=== PATIENT | male | born 1950 | race Caucasian/White ===

== ENCOUNTER 2019-03-12 22:10 | Inpatient (IN) ==
[2019-03-12] MEDS ORDERED: dilTIAZem HCl 5 MG/ML 5 ML VIAL IV STA ×2 (22:27→23:32)
[2019-03-12] MEDS ORDERED: SODIUM CHLORIDE 0.9% 1000ML 1,000 ML IV ONE (22:28)
--- NOTE | 2019-03-12 22:38 | XRay Report ---
XR chest 1V portable CLINICAL HISTORY: Chest Pain COMPARISON STUDY: No previous studies for comparison. FINDINGS: There is no pneumothorax. A trace right pleural effusion is present. Note is made of mild c ardiomegaly. There is pulmonary vascular congestion with suspected mild pulmonary edema. There are mi ld bibasilar opacities. IMPRESSION: 1. Interstitial thickening suggestive of mild pulmonary edema. Mild bibasilar opacities. Radiographic follow up is recommended. 2. Trace right pleural effusion. 3. Mild cardiomegaly. ACT 112: Negative or not required by law. Electronically signed by: Rubén Villalta M.D. 03/12/2019 10:36 PM
[2019-03-12 22:43] LABS: Basophils # (auto) 0.03 K/uL (0-0.2); Basophils % (auto) 0.2 %; Eosinophils # (auto) 0.39 K/uL (0-0.5); Eosinophils % (auto) 3.2 %; Hematocrit (blood only) 47.7 % (42-52); Hemoglobin 15.7 g/dL (14.0-18.0); Immature Granulocytes # (auto) 0.12 K/uL (0.00-0.02); Lymphocytes # (auto) 4.03 K/uL (1.2-3.4); Lymphocytes % (auto) 32.7 %; Mean Corpuscular Hemoglobin 28.5 pg (25-34); Mean Corpuscular Hgb Conc 32.9 g/dL (32-36); Mean Corpuscular Volume 86.7 fL (80-100); Mean Platelet Volume 11.2 fL (7.4-10.4); Monocytes # (auto) 1.06 K/uL (0.11-0.59); Monocytes % (auto) 8.6 %; Neutrophils # (auto) 6.68 K/uL (1.4-6.5); Neutrophils % (auto) 54.3 %; Platelet Count 304 K/uL (130-400); RDW Coefficient of Variation 13.3 % (11.5-14.5); RDW Standard Deviation 42.2 fL (36.4-46.3); White Blood Count 12.31 K/uL (4.8-10.8)
[2019-03-12] MEDS: dilTIAZem HCL 125 MG in DEXTROSE 5% 100 ML IV SCH (22:43)
[2019-03-12 23:04] LABS: Alanine Aminotransferase 87 U/L (12-78); Albumin Level 3.8 gm/dl (3.4-5.0); Aspartate Aminotransferase 39 U/L (15-37); BUN Creatinine Ratio 21.6 (10-20); Blood Urea Nitrogen 21 mg/dl (7-18); Calcium 9.1 mg/dl (8.5-10.1); Carbon Dioxide 26 mmol/L (21-32); Chloride 109 mmol/L (98-107); Creatinine Clr Calc Pharmacy 92.3 ml/min; Est GFR (Non-African American) 78.5; Glucose 122 mg/dl (70-99); Lipase 153 U/L (73-393); Potassium 3.9 mmol/L (3.5-5.1); Sodium 140 mmol/L (136-145)
[2019-03-12 23:09] LABS: Alkaline Phosphatase 110 U/L (45-117); Bilirubin,Total 0.8 mg/dl (0.2-1); Globulin 3.9 gm/dl (2.5-4.0); Total Protein 7.7 gm/dl (6.4-8.2); Troponin I < 0.015 ng/ml (0-0.045)
[2019-03-12] MEDS: LORazepam 0.5 MG/1 ML VIAL IV PRN (23:09)
[2019-03-12] MEDS ORDERED: LEVOFLOXACIN/D5W 750 MG/150 ML BAG IV SCH (23:45)
--- NOTE | 2019-03-13 00:09 | Emergency Department Note ---
Entered by Ewa Bird acting as a scribe for Gilbert Barroso DO History of Present Illness General Chief complaint: Shortness of Breath/Dyspnea Stated complaint: SOB,WHEEZING Source: patient and family (son) History of Present Illness Onset (ago): week(s) 1 Location: chest (SOB/dyspnea) Pain Consistency: + constant and + other (worsened today) Relieved By: + other (sleeping upright) Exacerbated By: + rest (laying flat) Associated symptoms: + denies other symptoms (diarrhea, swelling), + cough (began productive, now dry ), + shortness of breath (x1 week, wheezing 1 hour ago ) and + other (rhinorrhea, heart palpitations 1 hour ago); no chest pain and no nausea/vomiting The patient is a 69 year old male with a family history of Afib (brothers) who presents to the Emergency Room with complaints of shortness of breath/dyspnea. The patient states that he has been experiencing SOB for 1 week associated with cold symptoms including a cough (began productive, now dry) and rhinorrhea. He explains that he has been sleeping upright on a recliner for the past few nights due to trouble breathing. He was recently placed on doxycycline for his symptoms. The patient states that his SOB worsened a few hours ago and that he began having heart palpitations and wheezing about 1 hour ago. He also reports taking Advil cold and sinus at this time. He denies chest pain, nausea, vom iting, diarrhea, and swelling. The patient offers no further concerns at this time. Home Medications Home Medications Medication Instructions Recorded Confirmed Type amlodipine 5 mg PO DAILY 03/12/19 03/12/19 History Allergies Allergy/AdvReac Type Severity Reaction Status Date / Time No Known Allergies Allergy Unverified 03/12/19 23:03 Past Med/Surg History Medical History No pertinent past medical history Surgical History No pertinent past surgical history Family History Brother Afib Social History Feels Safe at Home: Yes Smoking Status: Never smoker Review of Systems See HPI for pertinent positives & negatives. and A total of 10 systems reviewed and were otherwise negative Physical Exam Vital Signs Vital Signs - 24 hr 03/12/19 22:10 03/12/19 22:12 03/12/19 22:22 Temperature 36.7 C Temperature Source Oral Pulse Rate 163 H 180 H Pulse Rate [Apical] Pulse Rate from SpO2 Sensor Pulse Rhythm Irregular Respiratory Rate 18 20 Respiratory Effort / Characteristics Non-Labored Spontaneous Non-Labored Respiratory Depth Normal Normal Respiratory Pattern Regular Blood Pressure 152/111 H Blood Pressure [Left Arm] Blood Pressure Mean 124 Blood Pressure Mean [Left Arm] Pulse Oximetry 98 91 98 Oxygen Delivery Method Room Air Room Air Room Air Oxygen Flow Rate Sepsis Recent Fever Within 48 Hours No Sepsis Action Taken by Nursing No Action Required 03/12/19 22:26 03/12/19 22:30 03/12/19 22:35 Temperature Temperature Source Pulse Rate 166 H 176 H 163 H Pulse Rate [Apical] Pulse Rate from SpO2 Sensor Pulse Rhythm Respiratory Rate 25 H 32 H 29 H Respiratory Effort / Characteristics Respiratory Depth Respiratory Pattern Blood Pressure 169/118 H Blood Pressure [Left Arm] Blood Pressure Mean 128 Blood Pressure Mean [Left Arm] Pulse Oximetry Oxygen Delivery Method Oxygen Flow Rate Sepsis Recent Fever Within 48 Hours Sepsis Action Taken by Nursing 03/12/19 22:45 03/12/19 22:56 03/12/19 23:00 Temperature Temperature Source Pulse Rate 166 H 164 H 163 H Pulse Rate [Apical] Pulse Rate from SpO2 Sensor Pulse Rhythm Respiratory Rate 41 H 34 H 27 H Respiratory Effort / Characteristics Respiratory Depth Respiratory Pattern Blood Pressure 184/109 H Blood Pressure [Left Arm] Blood Pressure Mean 127 Blood Pressure Mean [Left Arm] Pulse Oximetry Oxygen Delivery Method Oxygen Flow Rate Sepsis Recent Fever Within 48 Hours Sepsis Action Taken by Nursing 03/12/19 23:10 03/12/19 23:15 03/12/19 23:16 Temperature Temperature Source Pulse Rate 158 H 146 H 152 H Pulse Rate [Apical] Pulse Rate from SpO2 Sensor 151 H 142 H Pulse Rhythm Respiratory Rate 33 H 31 H 30 H Respiratory Effort / Characteristics Respiratory Depth Respiratory Pattern Blood Pressure 157/125 H 152/106 H Blood Pressure [Left Arm] Blood Pressure Mean 134 116 Blood Pressure Mean [Left Arm] Pulse Oximetry 88 L 89 L Oxygen Delivery Method Room Air Room Air Oxygen Flow Rate Sepsis Recent Fever Within 48 Hours Sepsis Action Taken by Nursing 03/12/19 23:30 03/12/19 23:31 03/12/19 23:40 Temperature Temperature Source Pulse Rate 134 H 147 H 139 H Pulse Rate [Apical] Pulse Rate from SpO2 Sensor 125 H 161 H 140 H Pulse Rhythm Respiratory Rate 24 29 H 21 Respiratory Effort / Characteristics Respiratory Depth Respiratory Pattern Blood Pressure 133/95 146/86 H Blood Pressure [Left Arm] Blood Pressure Mean 112 103 Blood Pressure Mean [Left Arm] Pulse Oximetry 89 L 89 L 89 L Oxygen Delivery Method Nasal Cannula Nasal Cannula Oxygen Flow Rate 3 3 Sepsis Recent Fever Within 48 Hours Sepsis Action Taken by Nursing 03/13/19 00:01 Temperature Temperature Source Pulse Rate Pulse Rate [Apical] 118 H Pulse Rate from SpO2 Sensor Pulse Rhythm Respiratory Rate 26 H Respiratory Effort / Characteristics Respiratory Depth Normal Respiratory Pattern Blood Pressure Blood Pressure [Left Arm] 132/86 Blood Pressure Mean Blood Pressure Mean [Left Arm] 101 Pulse Oximetry 94 Oxygen Delivery Method Nasal Cannula Oxygen Flow Rate 3 Sepsis Recent Fever Within 48 Hours Sepsis Action Taken by Nursing GENERAL: alert, sitting up in bed, wearing hospital gown, disheveled, well nou rished, no distress, non-toxic EYE EXAM: normal conjunctiva OROPHARYNX: no exudate, no erythema, lips, buccal mucosa, and tongue normal and mucous membranes are moist NECK: supple, no nuchal rigidity, no adenopathy, non-tender LUNGS: Diminished bilateral bases normal chest wall mechanics HEART: S1 normal and S2 normal, tachycardic and irregularly irregular. ABDOMEN: abdomen soft, non-tender, normo-active bowel sounds, no masses, no rebound or guarding. BACK: Back is symmetrical on inspection and there is no deformity, no midline tenderness, no CVA tenderness. SKIN: no rashes and no bruising UPPER EXTREMITIES: upper extremities are grossly normal. LOWER EXTREMITIES: No pitting edema. NEURO EXAM: Normal sensorium, cranial nerves II-XII grossly intact, normal speech, no gross weakness of arms, no gross weakness of legs. Course Course ED COURSE: Vital signs were reviewed and showed hypertension. The patients medical record was reviewed The above diagnostic studies were performed and reviewed. ED treatments and interventions as stated above. 2225: The patient was evaluated in room B04B. A complete history and physical examination was performed. 2335: I checked on the patient and am giving him another bolus. []: Upon reevaluation, the patient is resting.I discussed my findings with the patient and he understands and agrees with the treatment plan. Based on the patients age, coexisting illnesses, exam and lab findings the decision to treat as an inpatient was made. The patient remained stable while under my care. The patient will be evaluated for further management by Dr. Fry. Administered Medications Diltiazem HCl 125 mg/ Dextrose 125 mls @ 0 mls/hr IV .Q0M NIRMALA; Protocol Stop: 04/11/19 22:29 Last Titration: 03/12/19 23:00 Dose: 15 mg/hr, 15 mls/hr Documented by: [id number] Cosigned by: [id number] Admin: 03/12/19 22:43 Dose: 5 mg/hr, 5 mls/hr Documented by: [id number] Cosigned by: [id number] Lorazepam (Ativan) 0.5 mg in 1 mls @ 0.5 mls/min IV UD PRN PRN Reason: Anxiety/Agitation Stop: 04/11/19 23:01 Last Admin: 03/12/19 23:09 Dose: 0.5 mls/min Documented by: [id number] Levofloxacin/Dextrose (Levaquin/D5w) 750 mg in 150 mls @ 100 mls/hr IV Q24H NIRMALA Stop: 03/26/19 23:44 Last Admin: 03/12/19 23:43 Dose: 100 mls/hr Documented by: [id number] Discontinued Medications Diltiazem HCl (Cardizem) 10 mg IV NOW STA Stop: 03/12/19 22:28 Last Admin: 03/12/19 22:34 Dose: 10 mg Documented by: [id number] Cosigned by: [id number] Diltiazem HCl (Cardizem) 10 mg IV NOW STA Stop: 03/12/19 23:33 Last Admin: 03/12/19 23:36 Dose: 10 mg Documented by: [id number] Cosigned by: [id number] Sodium Chloride (Nss 1000ml) 1,000 mls @ 999 mls/hr IV .Q1H1M ONE Stop: 03/12/19 23:28 Last Infusion: 03/12/19 23:27 Dose: 0 mls/hr Documented by: [id number] Admin: 03/12/19 22:34 Dose: 999 mls/hr Documented by: [id number] Critical Care Time Critical Care Time: Yes Total Critical Care Time: 40 I have personally spent 40 minutes of critical care time in the direct management of this patient. This includes bedside care, interpretation of diagnostic studies, and testing, discussion with consultants, patient, and family members, and other required patient management activities. This 40 minutes is in excess of all separately billable procedures. Medical Decision Making Differential Diagnosis Differential diagnoses includes but is not limited to pneumonia, bronchitis, COPD/Asthma exacerbation, pneumothorax, pulmonary embolism, congestive heart failure, acute coronary syndrome Medical Records Attestation: I reviewed the patient's medical records. Home Medications Current Medication List: was personally reviewed by me Laboratory Data Attestation: I reviewed the patient's lab results. Result diagrams: 03/12/19 22:25 03/12/19 22:25 Lab Results 03/12/19 03/12/19 03/12/19 Range/Units 22:25 22:25 Unknown WBC 12.31 H (4.8-10.8) K/uL RBC 5.50 (4.7-6.1) M/uL Hgb 15.7 (14.0-18.0) g/dL Hct 47.7 (42-52) % MCV 86.7 (80-100) fL MCH 28.5 (25-34) pg MCHC 32.9 (32-36) g/dL RDW Std Deviation 42.2 (36.4-46.3) fL RDW Coeff of Raegan 13.3 (11.5-14.5) % Plt Count 304 (130-400) K/uL MPV 11.2 H (7.4-10.4) fL Immature Gran % (Auto) 1.0 % Neut % (Auto) 54.3 % Lymph % (Auto) 32.7 % [place] % (Auto) 8.6 % Eos % (Auto) 3.2 % Baso % (Auto) 0.2 % Immature Gran # (Auto) 0.12 H (0.00-0.02) K/uL Neut # (Auto) 6.68 H (1.4-6.5) K/uL Lymph # (Auto) 4.03 H (1.2-3.4) K/uL [place] # (Auto) 1.06 H (0.11-0.59) K/uL Eos # (Auto) 0.39 (0-0.5) K/uL Baso # (Auto) 0.03 (0-0.2) K/uL Sodium 140 (136-145) mmol/L Potassium 3.9 (3.5-5.1) mmol/L Chloride 109 H (98-107) mmol/L Carbon Dioxide 26 (21-32) mmol/L Anion Gap 5.0 (3-11) BUN 21 H (7-18) mg/dl Creatinine 0.99 (0.6-1.4) mg/dl Est Cr Clr Drug Dosing 92.3 ml/min Est GFR ( Amer) 91.0 Est GFR (Non-Af Amer) 78.5 BUN/Creatinine Ratio 21.6 H (10-20) Glucose 122 H (70-99) mg/dl Calcium 9.1 (8.5-10.1) mg/dl Total Bilirubin 0.8 (0.2-1) mg/dl AST 39 H (15-37) U/L ALT 87 H (12-78) U/L Alkaline Phosphatase 110 (45-117) U/L Troponin I < 0.015 (0-0.045) ng/ml Total Protein 7.7 (6.4-8.2) gm/dl Albumin 3.8 (3.4-5.0) gm/dl Globulin 3.9 (2.5-4.0) gm/dl Albumin/Globulin Ratio 1.0 (0.9-2) Lipase 153 (73-393) U/L Influenza Type A Ag Neg for Influ A (Neg) Influenza Type B Ag Neg for Influ B (Neg) Imaging Data Radiologist's Impression: Radiology results as stated below per my review and the radiologist's interpretation: XR chest 1V portable CLINICAL HISTORY: Chest Pain COMPARISON STUDY: No previous studies for comparison. FINDINGS: There is no pneumothorax. A trace right pleural effusion is present. Note is made of mild cardiomegaly. There is pulmonary vascular congestion with suspected mild pulmonary edema. There are mild bibasilar opacities. IMPRESSION: 1. Interstitial thickening suggestive of mild pulmonary edema. Mild bibasilar opacities. Radiographic follow up is recommended. 2. Trace right pleural effusion. 3. Mild cardiomegaly. ACT 112: Negative or not required by law. Electronically signed by: Rubén Villalta M.D. 03/12/2019 10:36 PM ECG Data Attestation: I personally reviewed and interpreted this ECG as follows: Indication: + SOB/dyspnea Rate (beats per minute): 167 Rhythm: + atrial fibrillation (with RVR) ECG Berger: + Normal ECG Findings: + Other (Nonspecific ST wave changes in lateral ); no PVCs Blood Pressure Blood Pressure Findings: Elevated blood pressure Blood Pressure Disposition: further management by hospitalist VICTORIA Narrative Patient is a 69-year-old male who presents the ER for shortness of breath associate with upper respiratory symptoms. He notes his been sick for about a week and has been unable to lie flat due to shortness of breath. He is appear visiting his son. Upon presentation he is found to be in A. fib with RVR and a heart rate in the 180s. Lungs are diminished bilateral bases. IV was established blood work was obtained and showed mild leukocytosis of 12,000. No significant anemia. BMP with a slightly elevated glucose. Mild transaminitis as well. Troponin was negative. Lipase unremarkable. Influenza was negative. Patient was placed on a Cardizem drip and given 2 separate Cardizem boluses. Chest x-ray suggestive of pulmonary edema. Patient has been on doxycycline for treatment of pneumonia. Heart rate trended down to the 1 teens. Patient maintained his blood pressure. Patient was covered with a dose of Levaquin and updated and admitted to the hospital for A. fib with RVR with some congestive changes on chest x-ray. Impression & Plan Atrial fibrillation with RVR, SOB (shortness of breath), Pleural effusion, URI (upper respiratory infection) Discharge Plan Visit Data Chief Complaint: Shortness of Breath/Dyspnea Stated Complaint: SOB,WHEEZING ED Provider: Gilbert Barroso Discharge Problem: Atrial fibrillation with RVR, SOB (shortness of breath), Pleural effusion, URI (upper respiratory infection) Patient Disposition: Being Evaluated by Hospitalist Forms Stand Alone Forms: My [facility] Prescriptions Prescriptions: No Action amlodipine 5 mg tablet 5 mg PO DAILY RF: 0 Referrals Referrals: PCP,NO [Primary Care Provider] - Discharge Problem: URI (upper respiratory infection) Qualifiers: URI type: unspecified URI Qualified Code(s): J06.9 - Acute upper respiratory infection, unspecified The scribe's documentation has been prepared under my direction and personally reviewed by me in its entirety. I confirm that the note above accurately reflects all work, treatment, procedures, and medical decision making performed by me.
[2019-03-13] MEDS ORDERED: NITROGLYCERIN SL 0.4 MG/TAB TAB SL PRN (00:58)
[2019-03-13] MEDS ORDERED: ONDANSETRON INJ 2 MG/ML 2 ML VIAL IV PRN (00:58)
[2019-03-13] MEDS ORDERED: BENZONATATE 100 MG CAPSULE PO ONE (00:58)
[2019-03-13] MEDS ORDERED: FUROSEMIDE 40 MG/4 ML VIAL IV STA (00:58)
[2019-03-13] MEDS ORDERED: FUROSEMIDE 20 MG in SYRINGE 0 ML IV ONE ×2 (01:00→15:30)
[2019-03-13] MEDS ORDERED: LEVOFLOXACIN CONSULT ACTIVE PRN (01:02)
[2019-03-13 01:19] LABS: INR 1.1 (0.9-1.1); Prothrombin Time 10.9 Seconds (9.0-12.0)
--- NOTE | 2019-03-13 01:41 | History and Physical Report ---
DATE OF ADMISSION: 03/12/2019 CHIEF COMPLAINT: Shortness of breath, cough and palpitations. HISTORY OF PRESENT ILLNESS: This is a 69-year-old male with past medical history significant for hypertension. He is visiting [place]. He is having cold-like symptoms and cough going on for last 9 days. He was taking doxycycline with the PCP, but apparently not helping much. Last three days he did not sleep because of his cough and today he was getting short of breath and his heart was racing, so he came to the ER and found to be in rapid AFib with heart rate in 180's. He was started on Cardizem drip and was also given Ativan and Levaquin. Currently resting comfortably. Denies any chest pain, no headache, no dizziness, no earache. Has some runny nose, no sore throat. Appetite is okay. No dysphagia, no odynophagia. No nausea, no vomiting, no abdominal pain. Normal bowel and bladder movements. The patient does not know whether he has any blood in stools or black stools. No hematuria. He does not know whether he has any swelling in the legs. No rash. The patient denies any easy bruising or easy bleeding. Otherwise, he is active, he can climb steps and walk without any issues. ALLERGIES: No known drug allergies. PAST MEDICAL HISTORY: As mentioned above. Also significant for glaucoma. PAST SURGICAL HISTORY: He has stents in both eyes for his glaucoma and also cataract surgeries. MEDICATIONS: He is on amlodipine 5 mg p.o. daily. FAMILY HISTORY: Significant for father had hypertension and kidney disease. Mother had CHF, AFib and she is 90, she is alive and two of his brother has atrial fibrillation. SOCIAL HISTORY: He smoked for short period of time when he was 18. Denies any alcohol use. REVIEW OF SYMPTOMS: As per HPI. Rest of review of symptoms negative. PHYSICAL EXAMINATION: GENERAL: The patient is of moderate built, currently not in acute distress. VITAL SIGNS: Temperature 36.7, pulse when he came in it was 180's currently in 130s, respiratory rate 20s, blood pressure 132/86, oxygen 94% on 3 liters. HEENT: No pallor, no icterus. Pupils equal, round, reactive to light. NECK: No JVD, no neck masses, no carotid bruits. CARDIOVASCULAR: S1, S2 heard. Tachycardia, irregular rhythm. RESPIRATORY SYSTEM: Normal AP diameter. No accessory muscle use. No wheezing, no crackles. ABDOMEN: Soft, bowel sounds present, nontender. No distention. CENTRAL NERVOUS SYSTEM: Cranial nerves II-XII grossly intact. Nonfocal. EXTREMITIES: +1 pedal edema present, no erythema seen. LABORATORIES DATA: WBC 12.3, hemoglobin 15.7, hematocrit 47.7, platelets 304. Sodium 140, potassium 3.9, chloride 109, bicarbonate 26, BUN 21, creatinine 0.9, serum glucose 102, calcium 9.1, total bilirubin 0.8, AST 39, ALT 87, alkaline phosphatase is 110. Troponin I less than 0.015. Lipase 153. Influenza A and B negative. IMAGING DATA: Chest x-ray shows interstitial thickening suggestive of mild pulmonary edema, mild bibasilar opacities, trace right pleural effusion, mild cardiomegaly, possible right lower lobe infiltrate. EKG: AFib with rapid ventricular response at rate of 167, nonspecific ST abnormalities seen. ASSESSMENT AND PLAN: This is a 69-year-old male who presents with ongoing cough and presents with shortness of breath and palpitations accompanied with rapid atrial fibrillation. 1. Rapid atrial fibrillation: brothers and mother has atrial fibrillation. The patient was started on Cardizem drip in the ER which we will continue. Placed on IV heparin. Serial cardiac enzymes, echocardiogram. Monitor in tele floor. Consult cardiology in a.m. for further recommendations. 2. Pulmonary congestion, mild lower extremity edema, possible congestive heart failure: We will give a dose of IV Lasix 20 mg. Will follow echocardiogram. I's and O's and follow the response. Await Cardiology input. 3. Possible bronchitis versus pneumonia, could be possible right lower lobe infiltrate on chest x-ray, was getting doxycycline, was not helping. He is having cough and yellowish phlegm now is clear. In the ER he was started on Levaquin which we will continue. We will follow the response. 4. Hypertension. Will hold amlodipine as patient started on Cardizem drip. Will monitor. 5. Deep venous thrombosis prophylaxis, on IV heparin. DISPOSITION: Closely monitor in tele floor. Level 1 full code. MTDD
[2019-03-13] MEDS ORDERED: HEPARIN 25000 UNIT/500 ML D5W IV ONE (01:53)
[2019-03-13] MEDS: HEPARIN SODIUM/DEXTROSE 25,000 UNITS/500 ML BAG IV SCH ×2 (02:00→13:53)
[2019-03-13] MEDS: Heparin IV Standard *NO* Bolus IV SCH ×2 (02:00→07:06)
[2019-03-13] MEDS ORDERED: GUAIFENESIN/CODEINE 100MG/10MG 5ML UDC PO PRN (04:30)
[2019-03-13 05:22] LABS: Basophils # (auto) 0.02 K/uL (0-0.2); Basophils % (auto) 0.1 %; Eosinophils # (auto) 0.13 K/uL (0-0.5); Eosinophils % (auto) 0.9 %; Hematocrit (blood only) 44.2 % (42-52); Hemoglobin 14.7 g/dL (14.0-18.0); Immature Granulocytes # (auto) 0.13 K/uL (0.00-0.02); Immature Granulocytes % (auto) 0.9 %; Lymphocytes # (auto) 2.23 K/uL (1.2-3.4); Lymphocytes % (auto) 15.9 %; Mean Corpuscular Hemoglobin 28.7 pg (25-34); Mean Corpuscular Hgb Conc 33.3 g/dL (32-36); Mean Corpuscular Volume 86.3 fL (80-100); Monocytes # (auto) 0.88 K/uL (0.11-0.59); Monocytes % (auto) 6.3 %; Neutrophils # (auto) 10.63 K/uL (1.4-6.5); Neutrophils % (auto) 75.9 %; Platelet Count 274 K/uL (130-400); RDW Coefficient of Variation 13.1 % (11.5-14.5); RDW Standard Deviation 41.8 fL (36.4-46.3); Red Blood Count 5.12 M/uL (4.7-6.1); White Blood Count 14.02 K/uL (4.8-10.8)
[2019-03-13 05:40] LABS: BUN Creatinine Ratio 22.6 (10-20); Calcium 8.7 mg/dl (8.5-10.1); Creatinine Clr Calc Pharmacy 108.2 ml/min; Est GFR (Non-African American) 90.6; Magnesium 1.9 mg/dl (1.8-2.4); Potassium 3.9 mmol/L (3.5-5.1)
[2019-03-13] MEDS: BENZONATATE 100 MG CAPSULE PO SCH ×3 (07:55→21:45)
[2019-03-13] MEDS: dilTIAZem HCL 125 MG in DEXTROSE 5% 100 ML IV SCH ×3 (07:55→08:28)
[2019-03-13] MEDS ORDERED: METOPROLOL TARTRATE 25 MG TAB PO STA (08:41)
--- NOTE | 2019-03-13 08:46 | Cardiology Consultation ---
Date of Consultation March 13, 2019 Assessment & Plan (1) Atrial fibrillation with RVR: (2) Acute systolic (congestive) heart failure: (3) Pericardial effusion without cardiac tamponade: (4) HTN (hypertension): (5) URI (upper respiratory infection): I had a long discussion with the patient and his regarding the natural history, pathophysiology, and stroke risk associated with paroxysmal atrial fibrillation. [id number] score is 2 secondary to age and history of hypertension. Continue IV heparin. Transition to apixaban at discharge. Add metoprolol 25 mg every 6 hours. Wean IV Cardizem infusion as tolerated. Discussed potential need for transesophageal guided direct current cardioversion during hospitalization. We will continue medical management for the time being and reconsider in the next 24 to 40 hours pending clinical course. Chest x-ray demonstrates mild congestion and possible right lower lobe infiltrate on admission. Patient improved with 1 dose of IV Lasix. Repeat chest x-ray. Await results of resting 2D transthoracic echocardiogram. Antibiotics per internal medicine. Recommend maintaining serum potassium greater than 4.0, and serum magnesium level greater than 2.0. Supplementation ordered. TSH with reflex T4 ordered for completeness. Addendum: Chest x-ray reveals pulmonary edema. Resting 2D transthoracic echocardiogram demonstrates mild to moderate LV systolic dysfunction with global hypokinesis, moderate to severe mitral regurgitation, and indirect evidence of mild pulmonary hypertension. 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 There is a small circumferential pericardial effusion without evidence of tamponade. Recommend IV diuretic therapy and addition of colchicine. Wean IV Cardizem as tolerated. Continue beta-fco. Consideration for transesophageal guided direct current cardioversion pending clinical course. History of Present Illness Reason for Consultation: Paroxysmal atrial fibrillation Requesting Physician: Dr. Orellana Attending Physician: Delma Orellana MD History of Present Illness 69-year-old patient admitted to the hospital with palpitations, and shortness of breath. Patient describes shortness of breath cough, rhinorrhea, congestion, over the past week. He became abruptly short of breath yesterday prompting ER evaluation. Reports associated palpitations. Found to be atrial fibrillation with rapid ventricular response in ER. Reports family history of atrial f ibrillation involving 2 brothers and his mother. Denies personal history of coronary disease, diabetes, congestive heart failure, cerebrovascular accident, or rheumatic fever as a child. Patient treated with intravenous Cardizem infusion overnight. Outpatient amlodipine placed on hold. Heart rate remains elevated. Blood pressure controlled. present at bedside. She offers no additional concerns/complaints this time. Allergies Allergy/AdvReac Type Severity Reaction Status Date / Time No Known Allergies Allergy Unverified 03/12/19 23:03 Home Medications Home Medications Medication Instructions Recorded Confirmed Type amlodipine 5 mg PO DAILY 03/12/19 03/12/19 History Patient History Medical History No pertinent past medical history Surgical History No pertinent past surgical history Family History Brother Afib Social History Preferred Language: Mozambican Sole Layer Required: No Beliefs That Will Affect Care: None Current Living Situation: Spouse Feels Safe at Home: Yes Safety Concerns: Feels Safe At This Time Smoking Status: Never smoker Hx Alcohol Use: No Hx Substance Use: No Review of Systems Review of Systems: All systems reviewed & are unremarkable except as noted in HPI & below Physical Exam Constitutional: well developed, well nourished and + obese; no acute distress Respiratory: Auscultation: + crackles (Scant crackles at the right base); no rhonchi and no wheezes Cardiovascular: Rate/Rhythm: + tachycardic and + irregularly irregular Heart Sounds: normal S1 and normal S2; no murmur Vessels: no JVD Extremities: no edema Results & Data Vital Signs (Past 12 Hours) Vital Signs Temp Pulse Pulse Resp BP BP Pulse Ox 03/13/19 08:38 03/13/19 07:19 36.5 C 102 H 20 124/77 93 03/13/19 05:29 36.4 C L 79 22 126/74 94 03/13/19 00:30 36.6 C 113 H 17 141/86 H 92 03/13/19 00:19 118 H 24 116/87 92 03/13/19 00:01 118 H 26 H 132/86 94 03/12/19 23:40 139 H 21 146/86 H 89 L 03/12/19 23:31 147 H 29 H 89 L 03/12/19 23:30 134 H 24 133/95 89 L 03/12/19 23:16 152 H 30 H 89 L 03/12/19 23:15 146 H 31 H 152/106 H 88 L 03/12/19 23:10 158 H 33 H 157/125 H 03/12/19 23:00 163 H 27 H 03/12/19 22:56 164 H 34 H 184/109 H 03/12/19 22:45 166 H 41 H 03/12/19 22:35 163 H 29 H 169/118 H 03/12/19 22:30 176 H 32 H 03/12/19 22:26 166 H 25 H 03/12/19 22:22 180 H 20 98 03/12/19 22:12 36.7 C 163 H 18 152/111 H 91 03/12/19 22:10 98 Pulse Ox 03/13/19 08:38 93 03/13/19 07:19 03/13/19 05:29 03/13/19 00:30 03/13/19 00:19 03/13/19 00:01 03/12/19 23:40 03/12/19 23:31 03/12/19 23:30 03/12/19 23:16 03/12/19 23:15 03/12/19 23:10 03/12/19 23:00 03/12/19 22:56 03/12/19 22:45 03/12/19 22:35 03/12/19 22:30 03/12/19 22:26 03/12/19 22:22 03/12/19 22:12 03/12/19 22:10 (1) URI (upper respiratory infection) URI type: unspecified URI Qualified Code(s): J06.9 - Acute upper respiratory infection, unspecified (2) HTN (hypertension) Hypertension type: essential hypertension Qualified Code(s): I10 - Essential (primary) hypertension
[2019-03-13] MEDS ORDERED: POTASSIUM CHLORIDE 20 MEQ TABCR PO STA ×2 (08:47→16:57)
[2019-03-13 08:48] LABS: Partial Thromboplastin Ratio 1.4; Partial Thromboplastin Time 37.3 Seconds (21.0-31.0)
[2019-03-13] MEDS ORDERED: MAGNESIUM SULFATE / D5W 1 GM/100 ML BAG IV ONE (09:00)
[2019-03-13] MEDS ORDERED: AMLODIPINE BESYLATE 5 MG TAB PO SCH (09:00)
[2019-03-13] MEDS ORDERED: HEPARIN IV BOLUS 7,000 UNITS in SYRINGE 0 ML IV ONE (09:15)
--- NOTE | 2019-03-13 09:34 | XRay Report ---
XR chest 1V portable CLINICAL HISTORY: SOB COMPARISON STUDY: 03/12/2019 FINDINGS: The heart remains enlarged. There is radiographic evidence of mild congestive failure/fluid overload. There are small bilateral pleural effusions. There are right basilar airspace opacities, f ocal edema versus atelectasis versus infectious/inflammatory process IMPRESSION: 1. Cardiomegaly and radiographic evidence of congestive failure/fluid overload 2. Small bilateral pleural effusions 3. Persistent right basilar airspace opacities ACT 112: Negative or not required by law. Electronically signed by: Stephan Caal M.D. 03/13/2019 9:33 AM
[2019-03-13] MEDS: ACETAMINOPHEN 325 MG TAB PO PRN (09:48)
[2019-03-13] MEDS: LORazepam 0.5 MG/1 ML VIAL IV PRN (12:10)
[2019-03-13] MEDS ORDERED: LORazepam 0.5 MG TAB PO PRN (13:10)
[2019-03-13] MEDS: METOPROLOL TARTRATE 25 MG TAB PO SCH ×3 (13:35→22:59)
[2019-03-13] MEDS: GUAIFENESIN/DEXTROM SYRUP 200MG/20MG 10ML UDC PO PRN (13:53)
[2019-03-13] MEDS ORDERED: XOPENEX/ATROVENT 1.25mg/0.5MG NEB COMBO NEB PRN (14:54)
[2019-03-13] MEDS ORDERED: IPRATROPIUM BROMIDE NEB SOLN 0.02% 2.5 ML VIAL INH PRN (14:54)
--- NOTE | 2019-03-13 14:55 | Hospitalist Progress Note ---
Date of Service March 13, 2019 Assessment & Plan (1) Atrial fibrillation with RVR: new diagnosis has been having upper resp tract issues for past 1 week, with dry cough low- grade fever malaise Patient took Advil cold and sinus last night, which led him to develop severe shortness of breath palpitation, chest heaviness In the ER patient was found to be in rapid A. fib RVR Is on IV Cardizem drip, IV heparin started weight-based protocol for stroke prophylaxis Patient input from cardiology, Started on Lopressor 25 mg 4 times daily Patient heart rate improved to low 80s with addition of beta-fco, Cardizem discontinued Remains in A. fib Plan for possible DC cardioversion tomorrow if does not convert to sinus spontaneously over night Patient's daughter present at bedside who is a nurse at [employer] Patient and his family prefers anticoagulation with Coumadin does not want NOAC's Okay with blood work check for PT/INR monitoring Patient will be started with Coumadin 5 mg p.o. daily will update cardiology (2) SOB (shortness of breath): Possible secondary to decompensated CHF, with systolic dysfunction noted in echocardiogram today 03/13/2019 EF 40-45% with global hypokinesis of LV Appreciate input from cardiology: Patient will be continued with IV diuresis with Lasix Patient has been having symptoms of upper respiratory tract infection for last several days, Nonproductive cough, afebrile Has mild leukocytosis, order for sputum for culture and sensitivity, Empiric antibiotic with IV Rocephin, doxycycline Levaquin discontinued in the setting of arrhythmia (3) Acute systolic (congestive) heart failure: Possible secondary to rapid A. fib RVR, upper respiratory tract infection, hypoxemia No prior history of heart failure or coronary artery disease as per the patient Echo shows EF 40-45% Started on IV Lasix, will may benefit with p.o. lisinopril will defer decision to cardiology Monitor volume status (4) Pericardial effusion without cardiac tamponade: Incidental note on echocardiogram Ordered for colchicine (5) URI (upper respiratory infection): Continue empiric antibiotic with IV Rocephin and doxycycline PRN nebulizer treatment for shortness of breath Anxiety disorder Patient started reports of severe anxiety for the patient which may contribute to his rapid heart rate Ordered for PRN Ativan as needed Code status: Full code DVT prophylaxis on IV heparin Disposition: Patient lives in [facility]) Currently has [facility] to visit his son Follows with Cardiology Dr. Kane Canseco with [facility] Address : [facility] [address] [place] [address] will contact pt's Cardiology tomorrow to update Subjective Remains very short of breath, requiring supplemental O2, does not have any cough no fever or chills Very anxious, Heart rate has improved, has been off IV Cardizem drip, remains in A. fib He denies of palpitation chest heaviness, no orthopnea Review of Systems Review of Systems: All systems reviewed & are unremarkable except as noted in HPI & below Respiratory: + cough, + chest congestion, + dyspnea and + dyspnea on exertion Cardiovascular: as per Subjective / HPI; no edema Additional Comments: Atrial fibrillation Psychiatric: + anxiety Physical Exam Constitutional: WD/WN, vitals as above no acute distress Very anxious Eyes: PERRL, conjunctivae normal, anicteric sclerae ENMT: external ear and nose normal, oropharynx normal Neck: trachea midline, no thyromegaly Respiratory: + cough; no respiratory distress Auscultation: + diminished lung sounds and + rales; no wheezes Cardiovascular: Rate/Rhythm: + abnormal rhythm (Irregular) Extremities: normal capillary refill; no calf tenderness and no pedal edema Gastrointestinal (Abdomen): normal bowel sounds, soft, nontender, no hepato splenomegaly Musculoskeletal: no cyanosis or clubbing, extremities motor strength 5/5 Skin: no rashes, warm and dry Neurologic: PERRL, EOMI, accommodation nl, no face palsy, no dysarthria Psychiatric: Orientation: alert and oriented x 3 Mood: + anxious mood Results & Data Vital Signs (Past 12 Hours) Vital Signs Temp Pulse Resp BP Pulse Ox Pulse Ox 03/13/19 11:30 36.7 C 77 19 114/69 93 03/13/19 08:38 93 03/13/19 07:19 36.5 C 102 H 20 124/77 93 03/13/19 05:29 36.4 C L 79 22 126/74 94 (1) URI (upper respiratory infection) URI type: unspecified URI Qualified Code(s): J06.9 - Acute upper respiratory infection, unspecified
[2019-03-13] MEDS ORDERED: LEVALBUTEROL 1.25MG/0.5ML NEB INH PRN (15:00)
[2019-03-13] MEDS: LORazepam 1 MG TAB PO PRN ×2 (15:25→23:03)
[2019-03-13] MEDS ORDERED: FUROSEMIDE 40 MG in SYRINGE 0 ML IV ONE (16:00)
[2019-03-13 16:22] LABS: Partial Thromboplastin Ratio 2.9
[2019-03-13] MEDS: COLCHICINE 0.6 MG TAB PO SCH ×2 (16:56→22:59)
--- NOTE | 2019-03-13 21:41 | Electrocardiogram Report ---
Test Reason : Blood Pressure : / mmHG Vent. Rate : 167 BPM Atrial Rate : 178 BPM P-R Int : 000 ms QRS Dur : 094 ms QT Int : 290 ms P-R-T Axes : 000 020 -14 degrees QTc Int : 483 ms Atrial fibrillation with rapid ventricular response Nonspecific ST abnormality Abnormal ECG No previous ECGs available Confirmed by Pawan Zazueta ([id number]) on 03/13/2019 9:41:38 PM Referred By: REFERRED SELF Confirmed By:Pawan Zazueta
[2019-03-13] MEDS: DOXYCYCLINE HYCLATE 100 MG CAP PO SCH (21:45)
--- NOTE | 2019-03-13 21:49 | Electrocardiogram Report ---
Test Reason : Blood Pressure : / mmHG Vent. Rate : 095 BPM Atrial Rate : 192 BPM P-R Int : 000 ms QRS Dur : 100 ms QT Int : 378 ms P-R-T Axes : 000 029 020 degrees QTc Int : 475 ms Atrial fibrillation Nonspecific T wave abnormality Abnormal ECG When compared with ECG of 12-MAR-2019 22:19, Vent. rate has decreased BY 72 BPM Nonspecific T wave abnormality has replaced inverted T waves in Inferior leads Confirmed by Pawan Zazueta ([id number]) on 03/13/2019 9:49:14 PM Referred By: REFERRED SELF Confirmed By:Pawan Zazueta
[2019-03-13] MEDS ORDERED: LEVOFLOXACIN/D5W 750 MG/150 ML BAG IV SCH (23:00)
[2019-03-13 23:18] LABS: Partial Thromboplastin Ratio 2.1
[2019-03-13 23:20] LABS: Partial Thromboplastin Time 57.6 Seconds (21.0-31.0)
[2019-03-14 01:27] LABS: Calcium 8.8 mg/dl (8.5-10.1); Carbon Dioxide 26 mmol/L (21-32); Chloride 105 mmol/L (98-107); Creatinine Clr Calc Pharmacy 78.5 ml/min; Est GFR (African American) 75.9; Est GFR (Non-African American) 65.5; Glucose 157 mg/dl (70-99); Magnesium 1.9 mg/dl (1.8-2.4); Sodium 138 mmol/L (136-145); Troponin I < 0.015 ng/ml (0-0.045)
[2019-03-14 01:37] LABS: BUN Creatinine Ratio 21.5 (10-20); Blood Urea Nitrogen 25 mg/dl (7-18)
[2019-03-14] MEDS: HEPARIN SODIUM/DEXTROSE 25,000 UNITS/500 ML BAG IV SCH ×2 (03:56→17:40)
[2019-03-14] MEDS: METOPROLOL TARTRATE 25 MG TAB PO SCH ×3 (06:21→17:41)
[2019-03-14 06:55] LABS: Partial Thromboplastin Ratio 2.1
[2019-03-14 06:57] LABS: Partial Thromboplastin Time 57.5 Seconds (21.0-31.0)
[2019-03-14 07:14] LABS: BUN Creatinine Ratio 23.8 (10-20); Blood Urea Nitrogen 23 mg/dl (7-18); Calcium 9.1 mg/dl (8.5-10.1); Carbon Dioxide 24 mmol/L (21-32); Chloride 106 mmol/L (98-107); Est GFR (African American) 94.4; Est GFR (Non-African American) 81.5; Glucose 110 mg/dl (70-99); Magnesium 2.1 mg/dl (1.8-2.4); Potassium 4.2 mmol/L (3.5-5.1); Sodium 138 mmol/L (136-145)
[2019-03-14 07:18] LABS: Troponin I < 0.015 ng/ml (0-0.045)
--- NOTE | 2019-03-14 08:15 | Electrocardiogram Report ---
Test Reason : Blood Pressure : / mmHG Vent. Rate : 113 BPM Atrial Rate : 394 BPM P-R Int : 000 ms QRS Dur : 096 ms QT Int : 328 ms P-R-T Axes : 000 006 026 degrees QTc Int : 449 ms Atrial flutter with variable A-V block Abnormal ECG When compared with ECG of 13-MAR-2019 06:48, Atrial flutter has replaced Atrial fibrillation Confirmed by Ronen Avila ([id number]) on 03/14/2019 7:45:05 AM Referred By: REFERRED SELF Confirmed By:Ronen Avila
[2019-03-14] MEDS: FUROSEMIDE 40 MG in SYRINGE 0 ML IV SCH (08:45)
[2019-03-14] MEDS: GUAIFENESIN/DEXTROM SYRUP 200MG/20MG 10ML UDC PO PRN (08:45)
[2019-03-14] MEDS: COLCHICINE 0.6 MG TAB PO SCH ×2 (08:45→20:30)
[2019-03-14] MEDS: DOXYCYCLINE HYCLATE 100 MG CAP PO SCH ×2 (08:45→20:30)
[2019-03-14] MEDS: BENZONATATE 100 MG CAPSULE PO SCH ×3 (08:51→20:30)
[2019-03-14] MEDS: cefTRIAXone SODIUM 2,000 MG in DEXTROSE 5% 50 ML IV SCH (08:51)
--- NOTE | 2019-03-14 09:56 | Electrocardiogram Report ---
Test Reason : Blood Pressure : / mmHG Vent. Rate : 089 BPM Atrial Rate : 000 BPM P-R Int : 000 ms QRS Dur : 094 ms QT Int : 398 ms P-R-T Axes : 000 061 068 degrees QTc Int : 484 ms Atrial fibrillation Prolonged QT Abnormal ECG When compared with ECG of 13-MAR-2019 23:35, Atrial fibrillation has replaced Atrial flutter Confirmed by Ronen Avila ([id number]) on 03/14/2019 9:56:34 AM Referred By: REFERRED SELF Confirmed By:Ronen Avila
--- NOTE | 2019-03-14 10:17 | Cardiology Progress Note ---
Date of Service March 14, 2019 Assessment & Plan (1) Atrial fibrillation with RVR: (2) Acute systolic (congestive) heart failure: (3) Pericardial effusion without cardiac tamponade: (4) HTN (hypertension): (5) URI (upper respiratory infection): Risk, benefits, alternatives to transesophageal echo guided direct current cardioversion discussed with patient and family at length. Patient agreeable to procedure in a.m. 03/15/2019. N.p.o. except medications after midnight. Continue intravenous heparin infusion. Continue metoprolol, furosemide, and colchicine as previously ordered. Plan to add RON inhibitor as volume status improves. Oral anticoagulants discussed with patient and family at bedside. Currently patient prefers Coumadin however he has not made a final decision. Will readdress after all cardiac procedures have been completed. Briefly discussed performing cardiac catheterization prior to discharge due to left ventricular systolic dysfunction. Patient agreeable. Tentative plan for cardiac cath on Thursday or . Continue antibiotics per internal medicine. Replace electrolytes as indicated. Subjective Patient seen and examined at the bedside. Feeling better from a cardiovascular perspective. Moderate diuresis noted however weight not recorded today. Family present at bedside. Patient denies chest pain or shortness of breath at rest. Orthopnea improved. No lower extremity edema. Heart rate improving with oral beta-fco therapy. Review of Systems Review of Systems: All systems reviewed & are unremarkable except as noted in HPI & below Physical Exam Constitutional: well developed, well nourished and + obese; no acute distress Respiratory: Auscultation: + crackles (Scant crackles at the right base); no rhonchi and no wheezes Cardiovascular: Rate/Rhythm: + tachycardic and + irregularly irregular Heart Sounds: normal S1 and normal S2; no murmur Vessels: no JVD Extremities: no edema Results & Data Vital Signs (Past 12 Hours) Vital Signs Temp Pulse Pulse Pulse Pulse Resp BP 03/14/19 09:19 89 03/14/19 08:42 69 103/64 03/14/19 07:00 36.9 C 99 H 16 03/14/19 04:06 36.3 C L 94 H 18 03/13/19 23:49 36.8 C 104 H 22 BP Pulse Ox 03/14/19 09:19 03/14/19 08:42 03/14/19 07:00 115/73 97 03/14/19 04:06 138/78 94 03/13/19 23:49 113/77 96 (1) URI (upper respiratory infection) URI type: unspecified URI Qualified Code(s): J06.9 - Acute upper respiratory infection, unspecified (2) HTN (hypertension) Hypertension type: essential hypertension Qualified Code(s): I10 - Essential (primary) hypertension
[2019-03-14] MEDS: LORazepam 1 MG TAB PO PRN ×2 (11:07→20:30)
--- NOTE | 2019-03-14 17:45 | Anesthesiology Consultation ---
Date of Service March 14, 2019 Assessment & Plan Chart Review Chart Review: Acceptable Risk for Surgery and Patient NOT seen in Pre Admission Testing Consults Requested none ASA ASA4 Proposed Anesthesia Anesthesia Type: General and MAC History Height/Weight Height: 6 ft Weight: 106.1 kg Allergies Allergy/AdvReac Type Severity Reaction Status Date / Time No Known Allergies Allergy Unverified 03/12/19 23:03 Medications Home Medications Medication Instructions Recorded Confirmed Last Taken amlodipine 5 mg PO DAILY 03/12/19 03/12/19 03/12/19 09:00 Active Medications Generic Name Dose Route Start Last Admin Trade Name Freq PRN Reason Stop Dose Admin Acetaminophen 650 mg 03/13/19 00:58 03/13/19 09:48 Tylenol PO 04/12/19 00:57 650 mg Q4H PRN Administration Pain or Fever Benzonatate 100 mg 03/13/19 09:00 03/14/19 14:00 Tessalon Perle PO 04/12/19 08:59 100 mg TID NIRMALA Administration Colchicine 0.6 mg 03/13/19 16:15 03/14/19 08:45 Colcrys PO 04/12/19 16:14 0.6 mg BID NIRMALA Administration Doxycycline Hyclate 100 mg 03/13/19 21:00 03/14/19 08:45 Vibramycin PO 03/20/19 20:59 100 mg BID NIRMALA Administration Guaifenesin/Dextromethorphan 10 ml 03/13/19 13:11 03/14/19 08:45 Robitussin Cough-Chest Dm PO 04/12/19 13:10 10 ml Q6H PRN Administration Cough Diltiazem HCl 125 mg/ Dextrose 125 mls @ 0 mls/hr 03/12/19 22:30 03/13/19 13:54 IV 04/11/19 22:29 0 mg/hr .Q0M NIRMALA 0 mls/hr Titration Protocol 0 MG/HR Heparin Sodium/Dextrose 25,000 units in 500 mls @ 35 mls/hr 03/13/19 00:58 03/14/19 17:40 Heparin Sodium/Dextrose IV 04/12/19 00:57 1,750 units/hr .[id number] NIRMALA 35 mls/hr Administration Protocol 1,750 UNITS/HR Ceftriaxone Sodium 2,000 mg/ 70 mls @ 100 mls/hr 03/14/19 09:00 03/14/19 09:44 Dextrose IV 03/21/19 08:59 Infused DAILY NIRMALA Infusion Protocol Furosemide 40 mg/ Syringe 4 mls @ 4 mls/min 03/14/19 09:00 03/14/19 08:45 IV 04/13/19 08:59 4 mls/min DAILY NIRMALA Administration Lorazepam 1 mg 03/13/19 14:32 03/14/19 11:07 Ativan PO 04/12/19 13:09 1 mg Q8H PRN Administration Anxiety Metoprolol Tartrate 25 mg 03/13/19 12:00 03/14/19 17:41 Lopressor PO 04/12/19 11:59 25 mg Q6 NIRMALA Administration Ondansetron HCl 4 mg 03/13/19 00:58 03/13/19 23:09 Zofran IV 04/12/19 00:57 4 mg Q6H PRN Administration Nausea Past Medical History Medical History No pertinent past medical history Exercise / Class Metabolic Activity III < 4 Walking/Shop/Light housework Past Family History Family History Brother Afib Past Surgical History Surgical History No pertinent past surgical history Past Anesthesia History No Hx of Anesthesia Complications and No Family Hx of Anesthesia Complications History of PONV No Hx of PONV and No Hx of Motion Sickness Social History Smoking Status: Never smoker Hx Alcohol Use: No Hx Substance Use: No Physical Exam Vital Signs Last Vital Signs Temp 36.7 C 03/14/19 16:00 Pulse 88 03/14/19 16:00 Resp 20 03/14/19 16:00 BP 115/78 03/14/19 16:00 Pulse Ox 92 03/14/19 16:00 Testing Laboratory Results 03/13/19 05:07 03/14/19 06:19 PT 10.9 Seconds (9.0-12.0) 03/12/19 22:25 INR 1.1 (0.9-1.1) 03/12/19 22:25 APTT 57.5 Seconds (21.0-31.0) H* 03/14/19 06:19 Electrocardiogram Date: 03/14/19 Findings: + AFIB @ (at 89;prolonged QT) Chest X-Ray Date: 03/13/19 Findings: + cardiomegaly, + infiltrate (right basilar airspace opacities), + pulmonary vascular congestion and + pleural effusion (small bilateral pleural effusions) Echocardiogram Date: 03/13/19 LV Function: dysfunctional RWMA: + hypokinetic (mild-moderate global HK) Other Findings: + atrial enlargement (mod.LA dilation) Valvular Disease: + MR (moderate - severe) mild TR;PAP 48 Torr
--- NOTE | 2019-03-14 18:27 | Anesthesiology Consultation ---
Date of Service March 14, 2019 Assessment & Plan (1) Encounter for pre-operative examination: Chart Review Chart Review: Acceptable Risk for Surgery and Patient NOT seen in Pre Admission Testing Consults Requested none History Height/Weight Height: 6 ft Weight: 106.1 kg Allergies Allergy/AdvReac Type Severity Reaction Status Date / Time No Known Allergies Allergy Unverified 03/12/19 23:03 Medications Home Medications Medication Instructions Recorded Confirmed Last Taken amlodipine 5 mg PO DAILY 03/12/19 03/12/19 03/12/19 09:00 Active Medications Generic Name Dose Route Start Last Admin Trade Name Freq PRN Reason Stop Dose Admin Acetaminophen 650 mg 03/13/19 00:58 03/13/19 09:48 Tylenol PO 04/12/19 00:57 650 mg Q4H PRN Administration Pain or Fever Benzonatate 100 mg 03/13/19 09:00 03/14/19 14:00 Tessalon Perle PO 04/12/19 08:59 100 mg TID NIRMALA Administration Colchicine 0.6 mg 03/13/19 16:15 03/14/19 08:45 Colcrys PO 04/12/19 16:14 0.6 mg BID NIRMALA Administration Doxycycline Hyclate 100 mg 03/13/19 21:00 03/14/19 08:45 Vibramycin PO 03/20/19 20:59 100 mg BID NIRMALA Administration Guaifenesin/Dextromethorphan 10 ml 03/13/19 13:11 03/14/19 08:45 Robitussin Cough-Chest Dm PO 04/12/19 13:10 10 ml Q6H PRN Administration Cough Diltiazem HCl 125 mg/ Dextrose 125 mls @ 0 mls/hr 03/12/19 22:30 03/13/19 13:54 IV 04/11/19 22:29 0 mg/hr .Q0M NIRMALA 0 mls/hr Titration Protocol 0 MG/HR Heparin Sodium/Dextrose 25,000 units in 500 mls @ 35 mls/hr 03/13/19 00:58 03/14/19 17:40 Heparin Sodium/Dextrose IV 04/12/19 00:57 1,750 units/hr .[id number] NIRMALA 35 mls/hr Administration Protocol 1,750 UNITS/HR Ceftriaxone Sodium 2,000 mg/ 70 mls @ 100 mls/hr 03/14/19 09:00 03/14/19 09:44 Dextrose IV 03/21/19 08:59 Infused DAILY NIRMALA Infusion Protocol Furosemide 40 mg/ Syringe 4 mls @ 4 mls/min 03/14/19 09:00 03/14/19 08:45 IV 04/13/19 08:59 4 mls/min DAILY NIRMALA Administration Lorazepam 1 mg 03/13/19 14:32 03/14/19 11:07 Ativan PO 04/12/19 13:09 1 mg Q8H PRN Administration Anxiety Metoprolol Tartrate 25 mg 03/13/19 12:00 03/14/19 17:41 Lopressor PO 04/12/19 11:59 25 mg Q6 NIRMALA Administration Ondansetron HCl 4 mg 03/13/19 00:58 03/13/19 23:09 Zofran IV 04/12/19 00:57 4 mg Q6H PRN Administration Nausea Past Medical History Medical History No pertinent past medical history Past Family History Family History Brother Afib Past Surgical History Surgical History No pertinent past surgical history Social History Smoking Status: Never smoker Hx Alcohol Use: No Hx Substance Use: No Physical Exam Vital Signs Last Vital Signs Temp 36.7 C 03/14/19 16:00 Pulse 88 03/14/19 16:00 Resp 20 03/14/19 16:00 BP 115/78 03/14/19 16:00 Pulse Ox 92 03/14/19 16:00 Testing Laboratory Results 03/13/19 05:07 03/14/19 06:19 PT 10.9 Seconds (9.0-12.0) 03/12/19 22:25 INR 1.1 (0.9-1.1) 03/12/19 22:25 APTT 57.5 Seconds (21.0-31.0) H* 03/14/19 06:19 Electrocardiogram Date: 03/14/19 Findings: + AFIB @ Chest X-Ray Date: 03/13/19 Findings: + cardiomegaly fluid overload Echocardiogram Date: 03/12/19 EF: 45% Other Findings: + atrial enlargement Valvular Disease: + MR
--- NOTE | 2019-03-14 18:43 | Hospitalist Progress Note ---
Date of Service March 14, 2019 Assessment & Plan (1) Atrial fibrillation with RVR: new diagnosis has been having upper resp tract issues for past 1 week, with dry cough low- grade fever malaise Patient took Advil cold and sinus last night, which led him to develop severe shortness of breath palpitation, chest heaviness In the ER patient was found to be in rapid A. fib RVR was treated with on IV Cardizem drip, IV heparin started weight-based protocol for stroke prophylaxis Patient input from cardiology, Started on Lopressor 25 mg 4 times daily Patient heart rate improved to low 80s with addition of beta-fco, Cardizem discontinued Remains in A. 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 ) will need diagnosist cardiac cath (2) SOB (shortness of breath): Possible secondary to decompensated CHF, with systolic dysfunction noted in echocardiogram today 03/13/2019 EF 40-45% with global hypokinesis of LV Appreciate input from cardiology: treated with diuresis , with improvement of respiratory symptoms Patient has been having symptoms of upper respiratory tract infection for last several days, Nonproductive cough, afebrile Has mild leukocytosis, order for sputum for culture and sensitivity, Empiric antibiotic with IV Rocephin, doxycycline Levaquin discontinued in the setting of arrhythmia (3) Acute systolic (congestive) heart failure: Possible secondary to rapid A. fib RVR, upper respiratory tract infection, hypoxemia No prior history of heart failure or coronary artery disease as per the patient Echo shows EF 40-45% treated with IV Lasix, ACI will be added Monitor volume status (4) Pericardial effusion without cardiac tamponade: Incidental note on echocardiogram Ordered for colchicine pt denies of chest pain or discomfort (5) URI (upper respiratory infection): Continue empiric antibiotic with IV Rocephin and doxycycline PRN nebulizer treatment for shortness of breath Anxiety disorder Patient started reports of severe anxiety for the patient which may contribute to his rapid heart rate Ordered for PRN Ativan as needed Code status: Full code DVT prophylaxis on IV heparin Disposition: Patient lives in [place](suburb of [place]) Currently has [place] to visit his son Follows with Cardiology Dr. Kane Canseco with [facility] Address : [facility] [address] [place] [address] will contact pt's Cardiology tomorrow to update Subjective feels much better cough and SOB has improved HR remains variable between 90-120 , pt denies of feeling of palpitation , or chest heaviness plan for MIREYA cardioversion in am Review of Systems Respiratory: + cough Cardiovascular: as per Subjective / HPI; no edema Additional Comments: Atrial fibrillation Psychiatric: + anxiety Physical Exam Constitutional: WD/WN, vitals as above no acute distress Eyes: PERRL, conjunctivae normal, anicteric sclerae ENMT: external ear and nose normal, oropharynx normal Neck: trachea midline, no thyromegaly Respiratory: + cough; no respiratory distress Auscultation: + diminished lung sounds and + rales; no wheezes Cardiovascular: Rate/Rhythm: + abnormal rhythm (Irregular) Extremities: normal capillary refill; no calf tenderness and no pedal edema Gastrointestinal (Abdomen): normal bowel sounds, soft, nontender, no hepatosplenomegaly Musculoskeletal: no cyanosis or clubbing, extremities motor strength 5/5 Skin: no rashes, warm and dry Neurologic: PERRL, EOMI, accommodation nl, no face palsy, no dysarthria Psychiatric: Orientation: alert and oriented x 3 Mood: + anxious mood Results & Data Vital Signs (Past 12 Hours) Vital Signs Temp Pulse Pulse Pulse Resp BP BP 03/14/19 16:00 36.7 C 88 20 115/78 03/14/19 15:10 88 03/14/19 11:36 36.5 C 87 18 109/64 03/14/19 10:49 75 22 113/67 03/14/19 09:19 89 03/14/19 08:42 69 103/64 03/14/19 07:00 36.9 C 99 H 16 115/73 Pulse Ox 03/14/19 16:00 92 03/14/19 15:10 03/14/19 11:36 95 03/14/19 10:49 95 03/14/19 09:19 03/14/19 08:42 03/14/19 07:00 97 (1) URI (upper respiratory infection) URI type: unspecified URI Qualified Code(s): J06.9 - Acute upper respiratory infection, unspecified
[2019-03-15] MEDS: METOPROLOL TARTRATE 25 MG TAB PO SCH ×4 (00:02→20:36)
[2019-03-15] MEDS: LORazepam 1 MG TAB PO PRN (03:35)
[2019-03-15] MEDS: HEPARIN SODIUM/DEXTROSE 25,000 UNITS/500 ML BAG IV SCH ×2 (06:09→20:35)
[2019-03-15] MEDS ORDERED: ATROPINE SULFATE 0.1 MG/ML 10ML SYR IV ONE (07:51)
[2019-03-15] MEDS ORDERED: PROPOFOL IV EMULSION 10 MG/ML 20 ML VIAL IV ONE (08:31)
[2019-03-15] MEDS ORDERED: PHENYLEPHRINE HCL 10 MG/ML VIAL ONE (08:31)
[2019-03-15] MEDS ORDERED: LIDOCAINE HCL 2% 2 ML VIAL/AMP(20MG/ML) INFIL ONE (08:31)
--- NOTE | 2019-03-15 08:36 | Anesthesiology Progress Note ---
Date of Service March 15, 2019 Anesthesia Post Procedure Vital Signs Vital Signs: Temp Pulse Pulse Resp BP BP Pulse Ox 03/15/19 03:20 36.5 C 86 20 118/81 96 03/14/19 23:55 36.6 C 83 18 108/75 95 03/14/19 23:45 97 H 03/14/19 19:46 36.4 C L 100 H 19 113/79 94 03/14/19 16:00 36.7 C 88 20 115/78 92 03/14/19 15:10 88 03/14/19 11:36 36.5 C 87 18 109/64 95 03/14/19 10:49 75 22 113/67 95 03/14/19 09:19 89 03/14/19 08:42 69 103/64 Transfer of Care Handoff Completed per policy Notes Mental Status: alert / awake / arousable and participated in evaluation Nausea / Vomiting: adequately controlled Pain: adequately controlled Airway Patency, RR, SpO2: stable & adequate BP & HR: stable & adequate Hydration State: stable & adequate Anesthetic Complications: no major complications apparent and Pt Satisfied with anesthetic care Notes: Patient underwent MIREYA with cardioversion today under sedation. Immediately after MIREYA probe was placed patient began desaturating with minimal improvement with aggressive jaw thrust. No evidence of gastric contents or aspiration, but patient appeared to have very little pulmonary reserve, probably due to heart failure and his URI. MIREYA probe was removed and oxygen saturation returned to greater than 90%. Of note, patient continued to require aggressive jaw thrust to prevent obstruction throughout the entire procedure. I suspect the patient probably has severe obstructive sleep apnea. Even at the end of the procedure when patient was arousable to voice, he continued to obstruct with rapid desaturation unless aroused and reminded to breath. I would encourage the primary team to consider sleep study and possible CPAP/continuous pulse oximetry overnight. Priscilla Curiel MD, PhD Anesthesiology
[2019-03-15] MEDS: cefTRIAXone SODIUM 2,000 MG in DEXTROSE 5% 50 ML IV SCH (10:11)
[2019-03-15] MEDS: FUROSEMIDE 40 MG in SYRINGE 0 ML IV SCH (10:11)
[2019-03-15] MEDS: COLCHICINE 0.6 MG TAB PO SCH ×2 (10:11→20:36)
[2019-03-15] MEDS: DOXYCYCLINE HYCLATE 100 MG CAP PO SCH ×2 (10:12→20:36)
[2019-03-15] MEDS: BENZONATATE 100 MG CAPSULE PO SCH ×3 (10:12→20:35)
[2019-03-15 10:16] LABS: Creatinine Clr Calc Pharmacy 88.9 ml/min; Est GFR (African American) 88.8; Est GFR (Non-African American) 76.6
[2019-03-15 10:37] LABS: Partial Thromboplastin Time 53.6 Seconds (21.0-31.0)
--- NOTE | 2019-03-15 14:49 | Electrocardiogram Report ---
Test Reason : Blood Pressure : / mmHG Vent. Rate : 060 BPM Atrial Rate : 060 BPM P-R Int : 158 ms QRS Dur : 098 ms QT Int : 434 ms P-R-T Axes : 060 015 033 degrees QTc Int : 434 ms Normal sinus rhythm Possible Left atrial enlargement Borderline ECG When compared with ECG of 14-MAR-2019 06:49, Sinus rhythm has replaced Atrial fibrillation Vent. rate has decreased BY 29 BPM Confirmed by Renaldo Adam ([id number]) on 03/15/2019 2:49:21 PM Referred By: REFERRED SELF Confirmed By:Renaldo Adam
--- NOTE | 2019-03-15 15:35 | Cardiology Progress Note ---
Date of Service March 15, 2019 Assessment & Plan (1) Atrial fibrillation with RVR: (2) Acute systolic (congestive) heart failure: (3) Pericardial effusion without cardiac tamponade: (4) HTN (hypertension): (5) URI (upper respiratory infection): Reduce metoprolol to 25 mg twice daily. Risk, benefits, alternatives to cardiac catheterization discussed at length. Patient agreeable. N.p.o. except medications after midnight. Continue IV heparin infusion as a bridge to Coumadin. Plan to add RON inhibitor prior to discharge. Continue diuretic therapy. Monitor daily weight, fluid balance, GFR, electrolytes. Antibiotics per internal medicine. Repeat basic metabolic panel in a.m. Subjective Patient seen and examined at the bedside. Transesophageal echo guided direct current cardioversion successfully performed this a.m. Patient remains in sinus rhythm. Complains of intermittent cough. Continues to diurese with IV Lasix. No chest discomfort or palpitations. Family present at bedside. Voiced concern regarding chronic cough. Tolerating current medications. No signs/symptoms of GI/ blood loss. Review of Systems Review of Systems: All systems reviewed & are unremarkable except as noted in HPI & below Physical Exam Constitutional: well developed, well nourished and + obese; no acute distress Respiratory: Auscultation: no crackles (Scant crackles at the right base), no rhonchi and no wheezes Cardiovascular: Rate/Rhythm: regular rhythm and + bradycardic Heart Sounds: normal S1, normal S2 and + murmur (1/6 holosystolic murmur heard best at the apex.) Vessels: no JVD Extremities: no edema Skin: no rashes, warm and dry Neurologic: PERRL, EOMI, accommodation nl, no face palsy, no dysarthria Psychiatric: Affect: + flat affect Results & Data Vital Signs (Past 12 Hours) Vital Signs Temp Pulse Pulse Resp BP BP Pulse Ox 03/15/19 15:16 56 L 03/15/19 15:15 36.3 C L 64 16 114/75 95 03/15/19 12:32 36.8 C 55 L 18 107/70 97 03/15/19 10:57 65 18 104/75 95 03/15/19 09:27 62 18 101/72 95 03/15/19 08:57 55 L 03/15/19 08:55 36.5 C 63 18 115/70 95 03/15/19 08:37 Pulse Ox 03/15/19 15:16 03/15/19 15:15 03/15/19 12:32 03/15/19 10:57 03/15/19 09:27 03/15/19 08:57 03/15/19 08:55 03/15/19 08:37 97 (1) URI (upper respiratory infection) URI type: unspecified URI Qualified Code(s): J06.9 - Acute upper respiratory infection, unspecified (2) HTN (hypertension) Hypertension type: essential hypertension Qualified Code(s): I10 - Essential (primary) hypertension
--- NOTE | 2019-03-15 16:37 | Hospitalist Progress Note ---
Date of Service March 15, 2019 Assessment & Plan (1) Atrial fibrillation with RVR: new diagnosis Status post MIREYA followed by DC cardioversion today remains in sinus rhythm with rate controlled Presented upper resp tract issues for past 1 week, with dry cough low-grade fever malaise Patient took Advil cold and sinus last night, which led him to develop severe shortness of breath palpitation, chest heaviness In the ER patient was found to be in rapid A. 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 ) Plan for cardiac catheter tomorrow to assess underlying coronary artery disease (2) SOB (shortness of breath): Possible secondary to decompensated CHF, with systolic dysfunction noted in echocardiogram today 03/13/2019 EF 40-45% with global hypokinesis of LV Appreciate input from cardiology: treated with diuresis , with improvement of respiratory symptoms Patient has been having symptoms of upper respiratory tract infection for last several days, Nonproductive cough, afebrile Has mild leukocytosis, order for sputum for culture and sensitivity, Empiric antibiotic with IV Rocephin, doxycycline DC IV Rocephin, continue doxycycline for total 7 days Levaquin discontinued in the setting of arrhythmia (3) Acute systolic (congestive) heart failure: Possible secondary to rapid A. fib RVR, upper respiratory tract infection, hypoxemia No prior history of heart failure or coronary artery disease as per the patient Echo shows EF 40-45% treated with IV Lasix, patient will need RON inhibitor on discharge Monitor volume status (4) Pericardial effusion without cardiac tamponade: Incidental note on echocardiogram Ordered for colchicine pt denies of chest pain or discomfort (5) URI (upper respiratory infection): Continue empiric antibiotic with IV Rocephin and doxycycline PRN nebulizer treatment for shortness of breath Anxiety disorder Patient started reports of severe anxiety for the patient which may contribute to his rapid heart rate Ordered for PRN Ativan as needed Code status: Full code DVT prophylaxis on IV heparin Disposition: Patient lives in [place]([facility] [place]) Currently has [place] to visit his son Follows with Cardiology Dr. Kane Canseco with [facility] Address : [address] [address], [address] [place] [address] will contact pt's Cardiology tomorrow to update Subjective Patient remains in sinus with rate controlled Status post MIREYA cardioversion earlier this morning Has nonproductive cough: No fever chills no chest heaviness, no palpitation Updated by anesthesiologist earlier this morning, patient was showing evidence of severe sleep apnea Desaturated significantly during MIREYA procedure Will need nocturnal pulse oximetry study prior to discharge to assess nighttime oxygen need Patient is ordered n.p.o. past midnight for cardiac cath tomorrow Review of Systems Respiratory: + cough Cardiovascular: as per Subjective / HPI; no edema Additional Comments: Nonproductive cough Physical Exam Constitutional: WD/WN, vitals as above no acute distress Eyes: PERRL, conjunctivae normal, anicteric sclerae ENMT: external ear and nose normal, oropharynx normal Neck: trachea midline, no thyromegaly Respiratory: + cough; no respiratory distress Auscultation: + diminished lung sounds and + rales; no wheezes Cardiovascular: Rate/Rhythm: regular rate and regular rhythm (Irregular) Extremities: normal capillary refill; no calf tenderness and no pedal edema Gastrointestinal (Abdomen): normal bowel sounds, soft, nontender, no hepatosplenomegaly Musculoskeletal: no cyanosis or clubbing, extremities motor strength 5/5 Skin: no rashes, warm and dry Neurologic: PERRL, EOMI, accommodation nl, no face palsy, no dysarthria Psychiatric: Orientation: alert and oriented x 3 Results & Data Vital Signs (Past 12 Hours) Vital Signs Temp Pulse Pulse Resp BP BP Pulse Ox 03/15/19 15:16 56 L 03/15/19 15:15 36.3 C L 64 16 114/75 95 03/15/19 12:32 36.8 C 55 L 18 107/70 97 03/15/19 10:57 65 18 104/75 95 03/15/19 09:27 62 18 101/72 95 03/15/19 08:57 55 L 03/15/19 08:55 36.5 C 63 18 115/70 95 03/15/19 08:37 Pulse Ox 03/15/19 15:16 03/15/19 15:15 03/15/19 12:32 03/15/19 10:57 03/15/19 09:27 03/15/19 08:57 03/15/19 08:55 03/15/19 08:37 97 (1) URI (upper respiratory infection) URI type: unspecified URI Qualified Code(s): J06.9 - Acute upper respiratory infection, unspecified
[2019-03-15] MEDS ORDERED: CHLORASEPTIC 1.4% SOLN 180 ML BTL MT PRN (20:20)
[2019-03-16] MEDS: LORazepam 1 MG TAB PO PRN ×2 (01:59→09:52)
--- NOTE | 2019-03-16 07:55 | Anesthesiology Progress Note ---
Date of Service March 16, 2019 Anesthesia Post Procedure Vital Signs Vital Signs: Temp Pulse Pulse Pulse Resp BP BP 03/16/19 07:43 36.7 C 71 16 147/83 H 03/16/19 04:54 36.7 C 68 18 127/82 03/16/19 04:53 56 L 03/16/19 01:30 63 03/16/19 00:26 63 03/16/19 00:00 63 03/15/19 23:10 36.6 C 67 20 128/87 03/15/19 21:51 69 03/15/19 19:38 36.6 C 62 19 118/74 03/15/19 15:16 56 L 03/15/19 15:15 36.3 C L 64 16 114/75 03/15/19 12:32 36.8 C 55 L 18 107/70 03/15/19 10:57 65 18 104/75 03/15/19 09:27 62 18 101/72 03/15/19 08:57 55 L 03/15/19 08:55 36.5 C 63 18 115/70 03/15/19 08:37 Pulse Ox Pulse Ox Pulse Ox 03/16/19 07:43 94 03/16/19 04:54 94 03/16/19 04:53 93 03/16/19 01:30 96 03/16/19 00:26 95 03/16/19 00:00 03/15/19 23:10 98 03/15/19 21:51 95 03/15/19 19:38 95 03/15/19 15:16 03/15/19 15:15 95 03/15/19 12:32 97 03/15/19 10:57 95 03/15/19 09:27 95 03/15/19 08:57 03/15/19 08:55 95 03/15/19 08:37 97 Notes Mental Status: alert / awake / arousable and participated in evaluation Patient Amnestic to Procedure: Yes Nausea / Vomiting: adequately controlled Pain: adequately controlled Airway Patency, RR, SpO2: stable & adequate BP & HR: stable & adequate Hydration State: stable & adequate Anesthetic Complications: no major complications apparent
[2019-03-16 08:19] LABS: Partial Thromboplastin Ratio 1.9
[2019-03-16 08:19] LABS: Basophils # (auto) 0.03 K/uL (0-0.2); Basophils % (auto) 0.2 %; Eosinophils # (auto) 0.22 K/uL (0-0.5); Eosinophils % (auto) 1.7 %; Hematocrit (blood only) 45.6 % (42-52); Hemoglobin 15.3 g/dL (14.0-18.0); Immature Granulocytes # (auto) 0.14 K/uL (0.00-0.02); Immature Granulocytes % (auto) 1.1 %; Lymphocytes # (auto) 2.62 K/uL (1.2-3.4); Lymphocytes % (auto) 20.3 %; Mean Corpuscular Hemoglobin 29.2 pg (25-34); Mean Platelet Volume 11.6 fL (7.4-10.4); Monocytes # (auto) 0.88 K/uL (0.11-0.59); Monocytes % (auto) 6.8 %; Neutrophils # (auto) 9.02 K/uL (1.4-6.5); Neutrophils % (auto) 69.9 %; Platelet Count 255 K/uL (130-400); RDW Coefficient of Variation 13.5 % (11.5-14.5); RDW Standard Deviation 42.7 fL (36.4-46.3); Red Blood Count 5.24 M/uL (4.7-6.1); White Blood Count 12.91 K/uL (4.8-10.8)
[2019-03-16 08:22] LABS: Partial Thromboplastin Time 51.7 Seconds (21.0-31.0)
[2019-03-16 08:25] LABS: BUN Creatinine Ratio 19.9 (10-20); Calcium 9.5 mg/dl (8.5-10.1); Creatinine Clr Calc Pharmacy 87.2 ml/min; Est GFR (African American) 86.7; Est GFR (Non-African American) 74.8; Potassium 4.1 mmol/L (3.5-5.1)
[2019-03-16 08:42] LABS: Mean Corpuscular Hgb Conc 33.6 g/dL (32-36)
[2019-03-16] MEDS: cefTRIAXone SODIUM 2,000 MG in DEXTROSE 5% 50 ML IV SCH (09:02)
[2019-03-16] MEDS: COLCHICINE 0.6 MG TAB PO SCH ×2 (09:03→20:09)
[2019-03-16] MEDS: METOPROLOL TARTRATE 25 MG TAB PO SCH ×2 (09:03→20:09)
[2019-03-16] MEDS: FUROSEMIDE 40 MG in SYRINGE 0 ML IV SCH (09:03)
[2019-03-16] MEDS: DOXYCYCLINE HYCLATE 100 MG CAP PO SCH ×2 (09:03→20:09)
[2019-03-16] MEDS: BENZONATATE 100 MG CAPSULE PO SCH ×3 (09:52→20:08)
[2019-03-16] MEDS ORDERED: NiCARDipine HCL INJ 2.5 MG/ML 10 ML AMP ONE (11:01)
[2019-03-16] MEDS ORDERED: HEPARIN (PORCINE) 1000 UNIT/ML 10 ML (CATH LAB USE ONLY) ONE (11:01)
[2019-03-16] MEDS ORDERED: fentaNYL citrate 100 MCG/2 ML VIAL ONE (11:02)
[2019-03-16] MEDS ORDERED: MIDAZOLAM HCL 1 MG/ML 2ML VIAL ONE (11:02)
[2019-03-16] MEDS ORDERED: NITROGLYCERIN/D5W 100MCG/ML 20ML SYR ONE (11:02)
--- NOTE | 2019-03-16 11:42 | Electrocardiogram Report ---
Test Reason : Blood Pressure : / mmHG Vent. Rate : 058 BPM Atrial Rate : 058 BPM P-R Int : 150 ms QRS Dur : 098 ms QT Int : 488 ms P-R-T Axes : 048 001 026 degrees QTc Int : 479 ms Sinus bradycardia Left atrial enlargement Borderline ECG When compared with ECG of 15-MAR-2019 08:14, No significant change was found Confirmed by Ronen Avila ([id number]) on 03/16/2019 11:42:33 AM Referred By: REFERRED SELF Confirmed By:Ronen Avila
--- NOTE | 2019-03-16 11:57 | Cardiology Progress Note ---
Date of Service March 16, 2019 Assessment & Plan (1) Atrial fibrillation with RVR: (2) Acute systolic (congestive) heart failure: (3) Pericardial effusion without cardiac tamponade: (4) HTN (hypertension): (5) URI (upper respiratory infection): Risk, benefits, alternatives to cardiac catheterization discussed at length. Patient agreeable. Hold IV heparin. Transition metoprolol tartrate to Toprol-XL at time of discharge. Plan to add RON inhibitor prior to discharge. Continue diuretic therapy. Monitor daily weight, fluid balance, GFR, electrolytes. Antibiotics per internal medicine. Subjective Patient seen examined the bedside. Feeling better overnight. Remains in sinus rhythm. Ambulating the nicole without dyspnea. Denies orthopnea or paroxysmal nocturnal dyspnea. Cough improved. No sputum production. Fluid balance negative. Renal function stable. Review of Systems Review of Systems: All systems reviewed & are unremarkable except as noted in HPI & below Physical Exam Constitutional: well developed, well nourished and + obese; no acute distress Respiratory: Auscultation: no crackles (Scant crackles at the right base), no rhonchi and no wheezes Cardiovascular: Rate/Rhythm: regular rhythm and + bradycardic Heart Sounds: normal S1, normal S2 and + murmur (1/6 holosystolic murmur heard best at the apex.) Vessels: no JVD Extremities: no edema Skin: no rashes, warm and dry Neurologic: PERRL, EOMI, accommodation nl, no face palsy, no dysarthria Psychiatric: Affect: + flat affect Results & Data Vital Signs (Past 12 Hours) Vital Signs Temp Pulse Pulse Pulse Resp BP BP 03/16/19 11:11 51 L 16 129/80 03/16/19 08:00 56 L 03/16/19 07:43 36.7 C 71 16 147/83 H 03/16/19 04:54 36.7 C 68 18 127/82 03/16/19 04:53 56 L 03/16/19 01:30 63 03/16/19 00:26 63 03/16/19 00:00 63 Pulse Ox Pulse Ox 03/16/19 11:11 94 03/16/19 08:00 03/16/19 07:43 94 03/16/19 04:54 94 03/16/19 04:53 93 03/16/19 01:30 96 03/16/19 00:26 95 03/16/19 00:00 (1) URI (upper respiratory infection) URI type: unspecified URI Qualified Code(s): J06.9 - Acute upper respiratory infection, unspecified (2) HTN (hypertension) Hypertension type: essential hypertension Qualified Code(s): I10 - Essential (primary) hypertension
--- NOTE | 2019-03-16 11:58 | Pre Anesthesia Assessment ---
Date of Service March 16, 2019 Pre Sedation Assessment Vital Signs Temp Pulse Pulse Pulse Resp BP BP 03/17/19 11:24 36.8 C 47 L 18 105/62 03/17/19 08:00 49 L 03/17/19 06:57 37.1 C 55 L 20 124/66 03/17/19 03:33 37.1 C 64 19 110/60 03/16/19 23:43 70 03/16/19 23:19 37.1 C 59 L 19 134/70 03/16/19 19:00 36.6 C 53 L 18 109/67 03/16/19 18:12 36.6 C 54 L 18 111/66 03/16/19 17:06 53 L 18 133/82 03/16/19 16:00 36.9 C 54 L 50 L 20 129/75 03/16/19 15:30 36.8 C 48 L 20 127/77 03/16/19 15:00 36.8 C 48 L 18 122/71 03/16/19 14:39 36.6 C 52 L 18 125/63 03/16/19 14:15 55 L 20 125/63 03/16/19 14:00 58 L 20 134/78 03/16/19 13:45 51 L 20 129/76 03/16/19 13:30 36.7 C 52 L 20 126/72 Pulse Ox 03/17/19 11:24 93 03/17/19 08:00 03/17/19 06:57 93 03/17/19 03:33 94 03/16/19 23:43 03/16/19 23:19 92 03/16/19 19:00 94 03/16/19 18:12 91 03/16/19 17:06 93 03/16/19 16:00 94 03/16/19 15:30 94 03/16/19 15:00 93 03/16/19 14:39 92 03/16/19 14:15 92 03/16/19 14:00 90 03/16/19 13:45 93 03/16/19 13:30 90 Cardiovascular + regular rate and + regular rhythm + S1 normal, + S2 normal and + murmur no JVD Respiratory normal respiratory effort, lungs clear to auscultation Pre-Sedation Airway Assessment Smoking Status: Never smoker Hx Sleep Apnea: No Short, Thick Neck: No Thyromental Distance: > or= 3.5 Finger Breadths Oral Cavity: + WNL Mallampati Class: III ASA: ASA3 NPO Status Date of Last Intake of Fluids: 03/15/19 Time of Last Intake of Fluids: 23:00 Date of Last Intake of Solid Food: 03/15/19 Time of Last Intake of Solid Foods: 23:00 Procedure Planning Contraindications for Sedation: none Current Medications Reviewed: Yes Notes The planned sedation has been discussed with the patient. Informed Consent was obtained. I have identified the patient, determined the appropriateness of sedation and have assessed the patient immediately prior to the procedure. All medicine(s) and interventions are by my order.
--- NOTE | 2019-03-16 12:59 | Post Anesthesia Assessment ---
Date of Service March 16, 2019 Post Sedation Assessment Vital Signs Temp Pulse Pulse Pulse Resp BP BP 03/17/19 11:24 36.8 C 47 L 18 105/62 03/17/19 08:00 49 L 03/17/19 06:57 37.1 C 55 L 20 124/66 03/17/19 03:33 37.1 C 64 19 110/60 03/16/19 23:43 70 03/16/19 23:19 37.1 C 59 L 19 134/70 03/16/19 19:00 36.6 C 53 L 18 109/67 03/16/19 18:12 36.6 C 54 L 18 111/66 03/16/19 17:06 53 L 18 133/82 03/16/19 16:00 36.9 C 54 L 50 L 20 129/75 03/16/19 15:30 36.8 C 48 L 20 127/77 03/16/19 15:00 36.8 C 48 L 18 122/71 03/16/19 14:39 36.6 C 52 L 18 125/63 03/16/19 14:15 55 L 20 125/63 03/16/19 14:00 58 L 20 134/78 03/16/19 13:45 51 L 20 129/76 03/16/19 13:30 36.7 C 52 L 20 126/72 Pulse Ox 03/17/19 11:24 93 03/17/19 08:00 03/17/19 06:57 93 03/17/19 03:33 94 03/16/19 23:43 03/16/19 23:19 92 03/16/19 19:00 94 03/16/19 18:12 91 03/16/19 17:06 93 03/16/19 16:00 94 03/16/19 15:30 94 03/16/19 15:00 93 03/16/19 14:39 92 03/16/19 14:15 92 03/16/19 14:00 90 03/16/19 13:45 93 03/16/19 13:30 90 Recovery Score Activity: Moves 4 extremities Respiration: Deep Breath/Cough Circulation: +/-20% PreAnes Value Consciousness: Fully Awake Oxygen Saturation: > 92% On Room Air Discharge Sedation Level of Care: Phase I Post Sedation Plan On clinical assessment, the patient appears to have tolerated the sedation without complications. Patient is recovering as anticipated. Patient will continue to be monitored by nursing and may be discharged when sedation discharge criteria are met per below protocol. Upon Completions of procedure up to 15 minutes continue every 5 minute vital sig ns and the P.A.R. score; then discharge to a Phase I or Fast Track to Phase II per the following guidelines: * Discharge Patient to appropriate Phase II area if PAR is 8 or greater or return to pre- procedure baseline. The post - procedure orders will be as directed. * If PAR score is less than 8 or not return to pre-procedure baseline then patient will follow Phase I monitoring till PAR is reached for Phase II. The Phase I may be done in procedure room or may call to secure a Phase I area. * If naloxone or flumazenil are used for reversal, hold in Phase I for continued monitoring from when last reversal dose was given for a minimum of 60 minutes or longer pending the nurse and/or physician discretion of patient condition before discharge to Phase II. Please call the Sedation Physician to re-evaluate and complete post-note for discharge to Phase II area. Do NOT discharge from procedure sedation or Phase 1 until post- sedation evaluation note is complete by procedure /sedation MD Sedation Discharge Instructions to be given to the patient at discharge to home.
--- NOTE | 2019-03-16 13:02 | Cardiac Catheterization ---
Cardiac Cath Procedure Full Procedure Date March 16, 2019 Pre-Procedure Diagnosis Pre-Procedure Diagnosis: CHF, Cardiomyopathy and Arrhythmia AUC Score AUC Score: 8 Post-Procedure Diagnosis Post-Procedure Diagnosis: Mild CAD and Elevated Intracardiac Pressures Procedure(s) Performed Procedure(s) Performed: Coronary Angiography and Left Heart Cath Senior Software Test Engineer Irineo Kim DO Environmental Change Analyst(s) [place] [employer]TE[employer] CLEANING Estimated Blood Loss Estimated Blood Loss: 5cc Medication(s) Medication(s): Fentanyl, Heparin, Lidocaine 1%, Nicardipine, Nitroglycerin and Versed Summary of Findings Mild nonobstructive coronary artery disease. Elevated left ventricular end-diastolic pressure. Left ventricular ejection fraction of 50 to 54% with mild, 1+ mitral regurgitation. Hemodynamics Rest Ao:: 137/104/77 Final Ao: 129/97/72 LV: 128/12/25 Recommendations Recommendations: Medical Therapy and/or Counseling Specimens Specimens: None Radiation Exposure (mGy) 1740 Contrast (mls) 95 Fluids (cc crystalloids) Fluids (cc crystalloids): 90 Nss Anesthesia Moderate sedation. Start 1219. End 1253. Sedation monitor. Jules MALIK Procedural Complication(s) None Disposition Recovery Room\PACU I attest to the content of the Intraoperative Record and any orders documented therein. Any exceptions are noted below. ACC Data: Display Maker Cardiac Status Clinical evaluation leading to the procedure CAD Presenation: Unstable angina Anginal Classification: CCS III Heart Failure: NYHA Class: CCS III Cardiogenic Shock within 24 Hours: No Cardiac Arrest within 24 Hours: No Imaging Studies Past 6 Months: Yes Stress Studies Past 6 Months: No Coronary Anatomy Dominant: Right Left Main (% Stenosis): Normal LAD (% Stenosis): Normal D1 (% Stenosis): Normal D2 (% Stenosis): Normal D3 (% Stenosis): Normal Circumflex (% Stenosis): Normal OM1 (% Stenosis): Normal RCA (% Stenosis): Mid (10-20%) R PDA (% Stenosis): Normal R PL1 (% Stenosis): Normal R PL2 (% Stenosis): Normal Ramus (% Stenosis): Distal (10%) Left Ventricular Angiography EF (%): 50-54% Mitral Regurgitation: 1+ Diagnostic Physicians Name: Irineo Kim DO Status: Urgent Closure Device Percutaneous Entry Location: Radial Closure Device: Radial Band Recommendations: Medical Therapy and/or Counseling Intraprocedure Events Significant Disection: No Perforation: No
[2019-03-16] MEDS: HEPARIN SODIUM/DEXTROSE 25,000 UNITS/500 ML BAG IV SCH (14:19)
--- NOTE | 2019-03-16 16:03 | Hospitalist Progress Note ---
Date of Service March 16, 2019 Assessment & Plan (1) Atrial fibrillation with RVR: new diagnosis Status post MIREYA followed by DC cardioversion yesterday (03/15/2019) remains in sinus rhythm with rate controlled Presented upper resp tract issues for past 1 week, with dry cough low-grade fever malaise Patient took Advil cold and sinus last night, which led him to develop severe shortness of breath palpitation, chest heaviness In the ER patient was found to be in rapid A. fib RVR was treated with on IV Cardizem drip, IV heparin started weight-based protocol for stroke prophylaxis Patient input from cardiology, Patient is continued on beta-fco Per Dr. 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 ) Now s/p cardiac cath earlier today (03/16) to assess possible underlying coronary artery disease (2) SOB (shortness of breath): Possible secondary to decompensated CHF, with systolic dysfunction noted in echocardiogram today 03/13/2019 EF 40-45% with global hypokinesis of LV Appreciate input from cardiology: treated with diuresis , with improvement of respiratory symptoms Patient has been having symptoms of upper respiratory tract infection for last several days, Nonproductive cough, afebrile Has mild leukocytosis, order for sputum for culture and sensitivity, Empiric antibiotic with IV Rocephin, doxycycline DC IV Rocephin, continue doxycycline for total 7 days Levaquin discontinued in the setting of arrhythmia (3) Acute systolic (congestive) heart failure: Possible secondary to rapid A. fib RVR, upper respiratory tract infection, hypoxemia No prior history of heart failure or coronary artery disease as per the patient Echo shows EF 40-45% treated with IV Lasix, patient will need RON inhibitor on discharge Monitor volume status (4) Pericardial effusion without cardiac tamponade: Incidental note on echocardiogram Ordered for colchicine pt denies of chest pain or discomfort (5) URI (upper respiratory infection): Continue empiric antibiotic with IV Rocephin and doxycycline PRN nebulizer treatment for shortness of breath Anxiety disorder Patient started reports of severe anxiety for the patient which may contribute to his rapid heart rate Ordered for PRN Ativan as needed Code status: Full code DVT prophylaxis on IV heparin Disposition: Patient lives in [place](suburb of [place]) Currently in [place] to visit his son Follows with Cardiology Dr. Kane Canseco with [facility] Address : [facility] [address], [address] [phone] will contact pt's Cardiology to update Subjective Pt is sitting up in the chair. at the bedside. Pt is s/p cardiac cath earlier today. Tolerated the procedure well. Currently denies any chest pain, shortness of breath, dizziness, abd. pain, nausea or vomiting. Review of Systems Review of Systems: All systems reviewed & are unremarkable except as noted in HPI & below Constitutional: no fever, no chills and no fatigue Respiratory: no cough and no dyspnea Cardiovascular: no chest pain, no palpitations and no edema Gastrointestinal: no abdominal pain, no nausea and no vomiting Physical Exam Physical Exam: Constitutional: elderly male sitting up in the chair in no acute distress Eyes: PERRL, EOMI, conjunctivae normal, anicteric sclerae ENMT: external ear and nose normal, oropharynx normal Neck: trachea midline, no thyromegaly Respiratory: + cough; no respiratory distress Auscultation: + diminished lung sounds and + rales; no wheezes Cardiovascular: Rate/Rhythm: regular rate and regular rhythm Extremities: normal capillary refill; no calf tenderness and no pedal edema Gastrointestinal (Abdomen): normal bowel sounds, soft, nontender, nondistended, no guarding Musculoskeletal: no cyanosis or clubbing, extremities motor strength 5/5, moves all extremities spontaneously Skin: no rashes, warm and dry Neurologic: PERRL, EOMI, accommodation nl, no face palsy, no dysarthria, moves all extremities spontaneously Psychiatric: Orientation: alert and oriented x 3 Results & Data Vital Signs (Past 12 Hours) Vital Signs Temp Pulse Pulse Pulse Resp BP BP 03/16/19 15:30 36.8 C 48 L 20 127/77 03/16/19 15:00 36.8 C 48 L 18 122/71 03/16/19 14:39 36.6 C 52 L 18 125/63 03/16/19 14:15 55 L 20 125/63 03/16/19 14:00 58 L 20 134/78 03/16/19 13:45 51 L 20 129/76 03/16/19 13:30 36.7 C 52 L 20 126/72 03/16/19 13:24 36.7 C 52 L 16 126/72 03/16/19 13:20 70 16 122/88 03/16/19 13:15 70 16 132/96 03/16/19 13:10 70 16 132/82 03/16/19 13:05 70 16 137/84 03/16/19 11:11 51 L 16 129/80 03/16/19 08:00 56 L 03/16/19 07:43 36.7 C 71 16 147/83 H 03/16/19 04:54 36.7 C 68 18 127/82 03/16/19 04:53 56 L Pulse Ox Pulse Ox 03/16/19 15:30 94 03/16/19 15:00 93 03/16/19 14:39 92 03/16/19 14:15 92 03/16/19 14:00 90 03/16/19 13:45 93 03/16/19 13:30 90 03/16/19 13:24 90 03/16/19 13:20 92 03/16/19 13:15 92 03/16/19 13:10 92 03/16/19 13:05 92 03/16/19 11:11 94 03/16/19 08:00 03/16/19 07:43 94 03/16/19 04:54 94 03/16/19 04:53 93 Laboratory Results 03/16/19 03/16/19 03/16/19 Range/Units 07:45 07:45 07:41 WBC 12.91 H (4.8-10.8) K/uL RBC 5.24 (4.7-6.1) M/uL Hgb 15.3 (14.0-18.0) g/dL Hct 45.6 (42-52) % MCV 87.0 (80-100) fL MCH 29.2 (25-34) pg MCHC 33.6 (32-36) g/dL RDW Std Deviation 42.7 (36.4-46.3) fL RDW Coeff of Raegan 13.5 (11.5-14.5) % Plt Count 255 (130-400) K/uL MPV 11.6 H (7.4-10.4) fL Immature Gran % (Auto) 1.1 % Neut % (Auto) 69.9 % Lymph % (Auto) 20.3 % [place] % (Auto) 6.8 % Eos % (Auto) 1.7 % Baso % (Auto) 0.2 % Immature Gran # (Auto) 0.14 H (0.00-0.02) K/uL Neut # (Auto) 9.02 H (1.4-6.5) K/uL Lymph # (Auto) 2.62 (1.2-3.4) K/uL [place] # (Auto) 0.88 H (0.11-0.59) K/uL Eos # (Auto) 0.22 (0-0.5) K/uL Baso # (Auto) 0.03 (0-0.2) K/uL APTT 51.7 H* (21.0-31.0) Seconds PTT Ratio 1.9 Sodium 140 (136-145) mmol/L Potassium 4.1 (3.5-5.1) mmol/L Chloride 108 H (98-107) mmol/L Carbon Dioxide 26 (21-32) mmol/L Anion Gap 6.0 (3-11) BUN 21 H (7-18) mg/dl Creatinine 1.03 (0.6-1.4) mg/dl Est Cr Clr Drug Dosing 87.2 ml/min Est GFR ( Amer) 86.7 Est GFR (Non-Af Amer) 74.8 BUN/Creatinine Ratio 19.9 (10-20) Glucose 102 H (70-99) mg/dl Calcium 9.5 (8.5-10.1) mg/dl Medications Administered Current Inpatient Medications Acetaminophen (Tylenol) 650 mg PO Q4H PRN PRN Reason: Pain or Fever Stop: 04/12/19 00:57 Last Admin: 03/13/19 09:48 Dose: 650 mg Documented by: Benzonatate (Tessalon Perle) 100 mg PO TID NIRMALA Stop: 04/12/19 08:59 Last Admin: 03/16/19 14:14 Dose: 100 mg Documented by: Colchicine (Colcrys) 0.6 mg PO BID [facility] Stop: 04/12/19 16:14 Last Admin: 03/16/19 09:03 Dose: 0.6 mg Documented by: Doxycycline Hyclate (Vibramycin) 100 mg PO BID NIRMALA Stop: 03/20/19 20:59 Last Admin: 03/16/19 09:03 Dose: 100 mg Documented by: Guaifenesin/Dextromethorphan (Robitussin Cough-Chest Dm) 10 ml PO Q6H PRN PRN Reason: Cough Stop: 04/12/19 13:10 Last Admin: 03/14/19 08:45 Dose: 10 ml Documented by: Diltiazem HCl 125 mg/ Dextrose 125 mls @ 0 mls/hr IV .Q0M [facility]; Protocol Stop: 04/11/19 22:29 Last Titration: 03/13/19 13:54 Dose: 0 mg/hr, 0 mls/hr Documented by: Heparin Sodium/Dextrose (Heparin Sodium/Dextrose) 25,000 units in 500 mls @ 35 mls/hr IV .[id number] [facility]; Protocol Stop: 04/12/19 00:57 Last Admin: 03/16/19 14:19 Dose: 1,750 units/hr, 35 mls/hr Documented by: Ceftriaxone Sodium 2,000 mg/ (Dextrose) 70 mls @ 100 mls/hr IV DAILY [facility]; Protocol Stop: 03/21/19 08:59 Last Infusion: 03/16/19 09:45 Dose: Infused Documented by: Furosemide 40 mg/ Syringe 4 mls @ 4 mls/min IV DAILY [facility] Stop: 04/13/19 08:59 Last Admin: 03/16/19 09:03 Dose: 4 mls/min Documented by: Ipratropium [place] (Atrovent 0.02% 0.5mg/2.5ml) 0.5 mg INH Q6R PRN PRN Reason: wheeze Stop: 04/12/19 14:53 Levalbuterol HCl (Xopenex 1.25mg/0.5ml Neb) 1.25 mg INH Q6R PRN PRN Reason: WHEEZE Stop: 04/12/19 14:59 Lorazepam (Ativan) 1 mg PO Q8H PRN PRN Reason: Anxiety Stop: 04/12/19 13:09 Last Admin: 03/16/19 09:52 Dose: 1 mg Documented by: Metoprolol Tartrate (Lopressor) 25 mg PO BID NIRMALA Stop: 04/14/19 20:59 Last Admin: 03/16/19 09:03 Dose: 25 mg Documented by: Nitroglycerin (Nitrostat) 0.4 mg SL UD PRN PRN Reason: Chest Pain Stop: 04/12/19 00:57 Ondansetron HCl (Zofran) 4 mg IV Q6H PRN PRN Reason: Nausea Stop: 04/12/19 00:57 Last Admin: 03/13/19 23:09 Dose: 4 mg Documented by: Phenol (Chloraseptic 1.4% [place]) 2 sprays MT Q2H PRN PRN Reason: Sore Throat Stop: 04/14/19 20:19 Last Admin: 03/15/19 21:08 Dose: 2 sprays Documented by: (1) URI (upper respiratory infection) URI type: unspecified URI Qualified Code(s): J06.9 - Acute upper respiratory infection, unspecified
[2019-03-16 20:48] LABS: Partial Thromboplastin Ratio 1.7
[2019-03-16 20:53] LABS: Partial Thromboplastin Time 45.9 Seconds (21.0-31.0)
[2019-03-16] MEDS ORDERED: HEPARIN IV BOLUS 4,000 UNITS in SYRINGE 0 ML IV ONE (21:20)
[2019-03-17 03:33] LABS: Hemoglobin 14.8 g/dL (14.0-18.0); Mean Corpuscular Hemoglobin 29.1 pg (25-34); Mean Corpuscular Hgb Conc 33.6 g/dL (32-36); Mean Corpuscular Volume 86.6 fL (80-100); Platelet Count 236 K/uL (130-400); RDW Coefficient of Variation 13.4 % (11.5-14.5); RDW Standard Deviation 41.9 fL (36.4-46.3); Red Blood Count 5.08 M/uL (4.7-6.1); White Blood Count 11.16 K/uL (4.8-10.8)
[2019-03-17 03:48] LABS: BUN Creatinine Ratio 19.5 (10-20); Calcium 8.9 mg/dl (8.5-10.1); Creatinine Clr Calc Pharmacy 93.5 ml/min; Est GFR (African American) 94.4; Est GFR (Non-African American) 81.5; Potassium 3.6 mmol/L (3.5-5.1)
[2019-03-17 03:53] LABS: Partial Thromboplastin Ratio 2.8
[2019-03-17 03:56] LABS: Partial Thromboplastin Time 76.6 Seconds (21.0-31.0)
[2019-03-17] MEDS: HEPARIN SODIUM/DEXTROSE 25,000 UNITS/500 ML BAG IV SCH (04:14)
[2019-03-17] MEDS: COLCHICINE 0.6 MG TAB PO SCH ×2 (08:29→20:52)
[2019-03-17] MEDS: BENZONATATE 100 MG CAPSULE PO SCH ×3 (08:29→20:52)
[2019-03-17] MEDS: FUROSEMIDE 40 MG in SYRINGE 0 ML IV SCH (08:29)
[2019-03-17] MEDS: DOXYCYCLINE HYCLATE 100 MG CAP PO SCH ×2 (08:29→20:51)
[2019-03-17] MEDS: METOPROLOL TARTRATE 25 MG TAB PO SCH ×2 (08:56→20:53)
[2019-03-17] MEDS: cefTRIAXone SODIUM 2,000 MG in DEXTROSE 5% 50 ML IV SCH (08:56)
--- NOTE | 2019-03-17 09:55 | Hospitalist Progress Note ---
Date of Service March 17, 2019 Assessment & Plan (1) Atrial fibrillation with RVR: New diagnosis Status post MIREYA followed by DC cardioversion (03/15/2019) remains in sinus rhythm with rate controlled Presented with upper resp tract issues for past 1 week, with dry cough low-grade fever malaise Patient took Advil cold, which led him to develop severe shortness of breath palpitation, chest heaviness In the ER patient was found to be in rapid A. 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 Results will be sent to pt's international controller. (2) SOB (shortness of breath): Possible secondary to decompensated CHF, with systolic dysfunction noted in echocardiogram 03/13/2019 EF 40-45% with global hypokinesis of LV Appreciate input from cardiology: treated with diuresis , with improvement of respiratory symptoms Patient has been having symptoms of upper respiratory tract infection for last several days Nonproductive cough, afebrile Has mild leukocytosis, order for sputum for culture and sensitivity Empiric antibiotic with IV Rocephin, doxycycline, will cont. Levaquin discontinued in the setting of arrhythmia (3) Acute systolic (congestive) heart failure: Possible secondary to rapid A. fib RVR, upper respiratory tract infection, hypoxemia No prior history of heart failure or coronary artery disease as per the patient Echo shows EF 40-45%, treated with IV Lasix inpt Plan on discharge: -Toprol XL 50 mg daily - lisinopril 5 mg daily - PO lasix 40 mg daily - Monitor volume status (4) Pericardial effusion without cardiac tamponade: Incidental note on echocardiogram Started on colchicine pt denies of chest pain or discomfort (5) URI (upper respiratory infection): Started on empiric antibiotic with IV Rocephin and doxycycline,will cont. PRN nebulizer treatment for shortness of breath Anxiety disorder Patient started reports of severe anxiety for the patient which may contribute to his rapid heart rate Ordered for PRN Ativan as needed Code status: Full code DVT prophylaxis on IV heparin, plan to start Eliquis Disposition: Patient lives in [place](suburb of [place]) Currently in [place] to visit his son Follows with Cardiology Dr. Kane Canseco with [facility] Address : [facility] [address], [address] [place] [address] Will send results of pt's studies to his international controller. Subjective No acute events overnight. Pt is lying in bed, in no acute distress. present at the bedside. Pt denies any fever, chills, chest pain, shortness of breath, dizziness, lightheadedness. Continues to have nonproductive cough, but improved. Pt wants to be started on Eliquis for anticoagulation. 1 month free coupon provided by Mrs. Garcia. CD of his studies ordered and given to the pt. Plan to fax hard copies to his international controller. Review of Systems Review of Systems: All systems reviewed & are unremarkable except as noted in HPI & below Constitutional: no fever and no chills Respiratory: + cough; no dyspnea and no pain on inspiration Cardiovascular: no chest pain, no palpitations and no edema Gastrointestinal: no nausea and no vomiting Physical Exam Physical Exam: Constitutional: elderly male sitting up in the chair in no acut e distress Eyes: PERRL, EOMI, conjunctivae normal, anicteric sclerae ENMT: external ear and nose normal, oropharynx normal Neck: trachea midline, no thyromegaly Respiratory: + cough; no respiratory distress Auscultation: + diminished lung sounds and + mild rales; no wheezes Cardiovascular: Rate/Rhythm: regular rate and regular rhythm Extremities: normal capillary refill; no calf tenderness and no pedal edema Gastrointestinal (Abdomen): normal bowel sounds, soft, nontender, nondistended, no guarding Musculoskeletal: no cyanosis or clubbing, extremities motor strength 5/5, moves all extremities spontaneously Skin: no rashes, warm and dry Neurologic: PERRL, EOMI, accommodation nl, no face palsy, no dysarthria, moves all extremities spontaneously Psychiatric: Orientation: alert and oriented x 3 Results & Data Vital Signs (Past 12 Hours) Vital Signs Temp Pulse Pulse Pulse Resp BP Pulse Ox 03/17/19 06:57 37.1 C 55 L 20 124/66 93 03/17/19 03:33 37.1 C 64 19 110/60 94 03/16/19 23:43 70 03/16/19 23:19 37.1 C 59 L 19 134/70 92 Laboratory Results 03/17/19 03/17/19 03/17/19 Range/Units 03:20 03:20 03:20 WBC 11.16 H (4.8-10.8) K/uL RBC 5.08 (4.7-6.1) M/uL Hgb 14.8 (14.0-18.0) g/dL Hct 44.0 (42-52) % MCV 86.6 (80-100) fL MCH 29.1 (25-34) pg MCHC 33.6 (32-36) g/dL RDW Std Deviation 41.9 (36.4-46.3) fL RDW Coeff of Raegan 13.4 (11.5-14.5) % Plt Count 236 (130-400) K/uL MPV 11.0 H (7.4-10.4) fL APTT 76.6 H* (21.0-31.0) Seconds PTT Ratio 2.8 Sodium 140 (136-145) mmol/L Potassium 3.6 (3.5-5.1) mmol/L Chloride 107 (98-107) mmol/L Carbon Dioxide 28 (21-32) mmol/L Anion Gap 5.0 (3-11) BUN 19 H (7-18) mg/dl Creatinine 0.96 (0.6-1.4) mg/dl Est Cr Clr Drug Dosing 93.5 ml/min Est GFR ( Amer) 94.4 Est GFR (Non-Af Amer) 81.5 BUN/Creatinine Ratio 19.5 (10-20) Glucose 103 H (70-99) mg/dl Calcium 8.9 (8.5-10.1) mg/dl Magnesium 2.0 (1.8-2.4) mg/dl 03/16/19 Range/Units 20:13 WBC (4.8-10.8) K/uL RBC (4.7-6.1) M/uL Hgb (14.0-18.0) g/dL Hct (42-52) % MCV (80-100) fL MCH (25-34) pg MCHC (32-36) g/dL RDW Std Deviation (36.4-46.3) fL RDW Coeff of Raegan (11.5-14.5) % Plt Count (130-400) K/uL MPV (7.4-10.4) fL APTT 45.9 H* (21.0-31.0) Seconds PTT Ratio 1.7 Sodium (136-145) mmol/L Potassium (3.5-5.1) mmol/L Chloride (98-107) mmol/L Carbon Dioxide (21-32) mmol/L Anion Gap (3-11) BUN (7-18) mg/dl Creatinine (0.6-1.4) mg/dl Est Cr Clr Drug Dosing ml/min Est GFR ( Amer) Est GFR (Non-Af Amer) BUN/Creatinine Ratio (10-20) Glucose (70-99) mg/dl Calcium (8.5-10.1) mg/dl Magnesium (1.8-2.4) mg/dl Medications Administered Current Inpatient Medications Acetaminophen (Tylenol) 650 mg PO Q4H PRN PRN Reason: Pain or Fever Stop: 04/12/19 00:57 Last Admin: 03/13/19 09:48 Dose: 650 mg Documented by: Benzonatate (Tessalon Perle) 100 mg PO TID [facility] Stop: 04/12/19 08:59 Last Admin: 03/17/19 08:29 Dose: 100 mg Documented by: Colchicine (Colcrys) 0.6 mg PO BID [facility] Stop: 04/12/19 16:14 Last Admin: 03/17/19 08:29 Dose: 0.6 mg Documented by: Doxycycline Hyclate (Vibramycin) 100 mg PO BID [facility] Stop: 03/20/19 20:59 Last Admin: 03/17/19 08:29 Dose: 100 mg Documented by: Guaifenesin/Dextromethorphan (Robitussin Cough-Chest Dm) 10 ml PO Q6H PRN PRN Reason: Cough Stop: 04/12/19 13:10 Last Admin: 03/14/19 08:45 Dose: 10 ml Documented by: Diltiazem HCl 125 mg/ Dextrose 125 mls @ 0 mls/hr IV .Q0M [facility]; Protocol Stop: 04/11/19 22:29 Last Titration: 03/13/19 13:54 Dose: 0 mg/hr, 0 mls/hr Documented by: Heparin Sodium/Dextrose (Heparin Sodium/Dextrose) 25,000 units in 500 mls @ 35 mls/hr IV .[id number] [facility]; Protocol Stop: 04/12/19 00:57 Last Admin: 03/17/19 04:14 Dose: 1,750 units/hr, 35 mls/hr Documented by: Ceftriaxone Sodium 2,000 mg/ (Dextrose) 70 mls @ 100 mls/hr IV DAILY [facility]; Protocol Stop: 03/21/19 08:59 Last Admin: 03/17/19 08:56 Dose: 100 mls/hr Documented by: Furosemide 40 mg/ Syringe 4 mls @ 4 mls/min IV DAILY [facility] Stop: 04/13/19 08:59 Last Admin: 03/17/19 08:29 Dose: 4 mls/min Documented by: Ipratropium [place] (Atrovent 0.02% 0.5mg/2.5ml) 0.5 mg INH Q6R PRN PRN Reason: wheeze Stop: 04/12/19 14:53 Levalbuterol HCl (Xopenex 1.25mg/0.5ml Neb) 1.25 mg INH Q6R PRN PRN Reason: WHEEZE Stop: 04/12/19 14:59 Lorazepam (Ativan) 1 mg PO Q8H PRN PRN Reason: Anxiety Stop: 04/12/19 13:09 Last Admin: 03/16/19 09:52 Dose: 1 mg Documented by: Metoprolol Tartrate (Lopressor) 25 mg PO BID [facility] Stop: 04/14/19 20:59 Last Admin: 03/17/19 08:56 Dose: 25 mg Documented by: Nitroglycerin (Nitrostat) 0.4 mg SL UD PRN PRN Reason: Chest Pain Stop: 04/12/19 00:57 Ondansetron HCl (Zofran) 4 mg IV Q6H PRN PRN Reason: Nausea Stop: 04/12/19 00:57 Last Admin: 03/13/19 23:09 Dose: 4 mg Documented by: Phenol (Chloraseptic 1.4% [place]) 2 sprays MT Q2H PRN PRN Reason: Sore Throat Stop: 04/14/19 20:19 Last Admin: 03/15/19 21:08 Dose: 2 sprays Documented by: (1) URI (upper respiratory infection) URI type: unspecified URI Qualified Code(s): J06.9 - Acute upper respiratory infection, unspecified
[2019-03-17 10:51] LABS: Partial Thromboplastin Ratio 2.1
--- NOTE | 2019-03-17 13:40 | Cardiology Progress Note ---
Date of Service March 17, 2019 Assessment & Plan (1) Atrial fibrillation with RVR: (2) Acute systolic (congestive) heart failure: (3) Pericardial effusion without cardiac tamponade: (4) HTN (hypertension): (5) URI (upper respiratory infection): Transition to oral lasix 40mg daily in AM. Transition metoprolol tartrate to Toprol-XL 50mg daily. Add lisinopril 5mg daily. Discontinue IV heparin this evening and begin eliquis 5mg BID. Copy cardiac catheterization and echocardiographic images per patient request. Discharge in 24 to 48 hours. Subjective Patient seen and examined the bedside. Feeling much better today. Ambulating in the nicole without dyspnea. Tolerating diet and medications. Fluid balance remains negative. Sinus bradycardia noted on telemetry. Denies chest pain, palpitations, lightheadedness, dizziness, syncope, or near syncope. is present at bedside. Has questions regarding current medications and follow-up. Patient offers no new concerns/complaints this time. Review of Systems Review of Systems: All systems reviewed & are unremarkable except as noted in HPI & below Physical Exam Constitutional: well developed, well nourished and + obese; no acute distress ENMT: Mallampati Class: III Respiratory: normal respiratory effort, lungs clear to auscultation Auscultation: no crackles, no rhonchi and no wheezes Cardiovascular: Rate/Rhythm: regular rate, regular rhythm and + bradycardic Heart Sounds: normal S1, normal S2 and + murmur Vessels: no JVD Extremities: no edema Skin: no rashes, warm and dry Neurologic: PERRL, EOMI, accommodation nl, no face palsy, no dysarthria Psychiatric: Affect: + flat affect Results & Data Vital Signs (Past 12 Hours) Vital Signs Temp Pulse Pulse Pulse Resp BP Pulse Ox 03/17/19 11:24 36.8 C 47 L 18 105/62 93 03/17/19 08:00 49 L 03/17/19 06:57 37.1 C 55 L 20 124/66 93 03/17/19 03:33 37.1 C 64 19 110/60 94 (1) URI (upper respiratory infection) URI type: unspecified URI Qualified Code(s): J06.9 - Acute upper respiratory infection, unspecified (2) HTN (hypertension) Hypertension type: essential hypertension Qualified Code(s): I10 - Essential (primary) hypertension
[2019-03-17] MEDS: lisinopriL 5 MG TAB PO SCH (14:01)
[2019-03-17] MEDS ORDERED: SIMETHICONE 80 MG CHEW PO PRN (16:30)
[2019-03-17] MEDS: ACETAMINOPHEN 325 MG TAB PO PRN (16:32)
[2019-03-17] MEDS: SACCHAROMYCES BOULARDII 250 MG CAP PO SCH (17:05)
[2019-03-17] MEDS: APIXABAN 5 MG TABLET PO SCH (17:06)
--- NOTE | 2019-03-17 17:42 | Electrocardiogram Report ---
Test Reason : Blood Pressure : / mmHG Vent. Rate : 047 BPM Atrial Rate : 047 BPM P-R Int : 128 ms QRS Dur : 092 ms QT Int : 480 ms P-R-T Axes : 038 -13 -06 degrees QTc Int : 424 ms Sinus bradycardia Possible Left atrial enlargement Nonspecific T wave abnormality Abnormal ECG When compared with ECG of 16-MAR-2019 08:48, Nonspecific T wave abnormality, worse in Inferior leads Nonspecific T wave abnormality now evident in Lateral leads Confirmed by Renaldo Adam ([id number]) on 03/17/2019 5:42:20 PM Referred By: REFERRED SELF Confirmed By:Renaldo Adam
[2019-03-17] MEDS: guaiFENesin 600 MG TABCR PO SCH (23:09)
[2019-03-18 07:46] LABS: Hematocrit (blood only) 47.1 % (42-52); Hemoglobin 15.7 g/dL (14.0-18.0); Mean Corpuscular Hemoglobin 28.8 pg (25-34); Mean Corpuscular Hgb Conc 33.3 g/dL (32-36); Mean Corpuscular Volume 86.4 fL (80-100); Mean Platelet Volume 10.8 fL (7.4-10.4); Platelet Count 240 K/uL (130-400); RDW Coefficient of Variation 13.6 % (11.5-14.5); RDW Standard Deviation 42.2 fL (36.4-46.3); Red Blood Count 5.45 M/uL (4.7-6.1); White Blood Count 12.54 K/uL (4.8-10.8)
[2019-03-18 07:58] LABS: Partial Thromboplastin Time 27.6 Seconds (21.0-31.0)
[2019-03-18 08:14] LABS: BUN Creatinine Ratio 19.2 (10-20); Calcium 9.5 mg/dl (8.5-10.1); Creatinine Clr Calc Pharmacy 94.4 ml/min; Est GFR (African American) 96.8; Est GFR (Non-African American) 83.6; Magnesium 2.1 mg/dl (1.8-2.4)
[2019-03-18] MEDS ORDERED: METOPROLOL SUCC 50MG EXT REL TAB PO SCH (09:00)
[2019-03-18] MEDS: SACCHAROMYCES BOULARDII 250 MG CAP PO SCH (09:08)
[2019-03-18] MEDS: lisinopriL 5 MG TAB PO SCH (09:08)
[2019-03-18] MEDS: APIXABAN 5 MG TABLET PO SCH (09:08)
[2019-03-18] MEDS: COLCHICINE 0.6 MG TAB PO SCH (09:08)
[2019-03-18] MEDS: DOXYCYCLINE HYCLATE 100 MG CAP PO SCH (09:09)
[2019-03-18] MEDS: guaiFENesin 600 MG TABCR PO SCH (09:09)
[2019-03-18] MEDS: BENZONATATE 100 MG CAPSULE PO SCH (09:25)
[2019-03-18] MEDS ORDERED: PANTOprazole 40 MG TAB PO SCH (09:45)
[2019-03-18] MEDS ORDERED: FUROSEMIDE 40 MG TAB PO SCH (09:45)
[2019-03-18] MEDS: cefTRIAXone SODIUM 2,000 MG in DEXTROSE 5% 50 ML IV SCH (10:35)
--- NOTE | 2019-03-18 11:10 | Discharge Summary ---
Date of Service March 18, 2019 Admission HPI Per Admitting Provider This is a 69-year-old male with past medical history significant for hypertension. He is visiting [facility]. He is having cold-like symptoms and cough going on for last 9 days. He was taking doxycycline with the PCP, but apparently not helping much. Last three days he did not sleep because of his cough and today he was getting short of breath and his heart was racing, so he came to the ER and found to be in rapid AFib with heart rate in 180's. He was started on Cardizem drip and was also given Ativan and Levaquin. Currently resting comfortably. Denies any chest pain, no headache, no dizziness, no earache. Has some runny nose, no sore throat. Appetite is okay. No dysphagia, no odynophagia. No nausea, no vomiting, no abdominal pain. Normal bowel and bladder movements. The patient does not know whether he has any blood in stools or black stools. No hematuria. He does not know whether he has any swelling in the legs. No rash. The patient denies any easy bruising or easy bleeding. Otherwise, he is active, he can climb steps and walk without any issues. Admission Exam Per Admitting Provider GENERAL: The patient is of moderate built, currently not in acute distress. VITAL SIGNS: Temperature 36.7, pulse when he came in it was 180's currently in 130s, respiratory rate 20s, blood pressure 132/86, oxygen 94% on 3 liters. HEENT: No pallor, no icterus. Pupils equal, round, reactive to light. NECK: No JVD, no neck masses, no carotid bruits. CARDIOVASCULAR: S1, S2 heard. Tachycardia, irregular rhythm. RESPIRATORY SYSTEM: Normal AP diameter. No accessory muscle use. No wheezing, no crackles. ABDOMEN: Soft, bowel sounds present, nontender. No distention. CENTRAL NERVOUS SYSTEM: Cranial nerves II-XII grossly intact. Nonfocal. EXTREMITIES: +1 pedal edema present, no erythema seen. Principal Diagnosis Atrial fibrillation with RVR s/p cardioversion, Acute systolic heart failure, Pericardial effusion, URI Discharge Exam Constitutional: elderly male sitting up in the chair in no acute distress Eyes: PERRL, EOMI, conjunctivae normal, anicteric sclerae ENMT: external ear and nose normal, oropharynx normal Neck: trachea midline, no thyromegaly Respiratory: + cough; no respiratory distress Auscultation: mostly clear to auscult. (improved), + mild rales; no wheezes Cardiovascular: Rate/Rhythm: regular rate and regular rhythm , + syst.murmur at apex, Extremities: normal capillary refill; no calf tenderness and no pedal edema Gastrointestinal (Abdomen): normal bowel sounds, soft, nontender, nondistended, no guarding Musculoskeletal: no cyanosis or clubbing, extremities motor strength 5/5, moves all extremities spontaneously Skin: no rashes, warm and dry Neurologic: PERRL, EOMI, accommodation nl, no face palsy, no dysarthria, moves all extremities spontaneously Psychiatric: Orientation: alert and oriented x 3 Discharge Data Allergies Allergy/AdvReac Type Severity Reaction Status Date / Time No Known Allergies Allergy Unverified 03/12/19 23:03 Consultations 03/12/19 23:22 ED Decision to Admit Stat 03/13/19 08:00 Consult Cardiology Routine 03/14/19 16:25 Consult Anesthesiology Routine 03/14/19 16:26 Consult Anesthesiology Routine 03/16/19 07:36 Consult Cardiac Catheterization Routine 03/17/19 09:51 Burn CD for patient Routine Procedures Performed Operation Date: 03/15/19 07:30 Actual Procedures p Echo Transesophageal - Irineo Kim DO s Cardioversion - Irineo Kim DO Operation Date: 03/16/19 10:00 Actual Procedures s Cineradiography w/Routine Exam - Irineo Kim DO p Cath, Left with Cors and Vent - Irnieo Kim DO Ordered Studies 03/16/19 11:15 CL Cath Imgs for PACS use only Routine Hospital Course (1) Atrial fibrillation with RVR: New diagnosis Status post MIREYA followed by DC cardioversion (03/15/2019) remains in sinus rhythm with rate controlled Presented with upper resp tract issues for past 1 week, with dry cough low-grade fever malaise Patient took Advil cold, which led him to develop severe shortness of breath palpitation, chest heaviness In the ER patient was found to be in rapid A. fib RVR was treated with on IV Cardizem drip, IV heparin started weight-based protocol for stroke prophylaxis Cardiology service consulted - Status post MIREYA followed by DC cardioversion (03/15/2019) remains in sinus rhythm with rate controlled - d/c IV heparin and start Eliquis (discussed with the pt in detail, also provided with 1 month free trial coupon) - Toprol XL 50 mg daily - lisinopril 5 mg daily - PO lasix 40 mg daily ECHO shows: EF 40-44%% with global hypokinesis of LV ventricle /small pericardial effusion /moderate to severe Mitral regurg. 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 (2) SOB (shortness of breath): Possible secondary to decompensated CHF, with systolic dysfunction noted in echocardiogram 03/13/2019 EF 40-45% with global hypokinesis of LV Appreciate input from cardiology: treated with diuresis , with improvement of respiratory symptoms Patient has been having symptoms of upper respiratory tract infection for last several days Nonproductive cough, afebrile Has mild leukocytosis, order for sputum for culture and sensitivity Empiric antibiotic with IV Rocephin, doxycycline, - pt finished Abx course Levaquin discontinued in the setting of arrhythmia (3) Acute systolic (congestive) heart failure: Possible secondary to rapid A. fib RVR, upper respiratory tract infection, hypoxemia No prior history of heart failure or coronary artery disease as per the patient Echo shows EF 40-45%, treated with IV Lasix inpt Plan on discharge: -Toprol XL 50 mg daily - lisinopril 5 mg daily - PO lasix 40 mg daily - Monitor volume status (4) Pericardial effusion without cardiac tamponade: Incidental note on echocardiogram Started on colchicine pt denies of chest pain or discomfort (5) URI (upper respiratory infection): Started on empiric antibiotic with IV Rocephin and doxycycline - finished Abx course PRN nebulizer treatment for shortness of breath Anxiety disorder Patient started reports of severe anxiety for the patient which may contribute to his rapid heart rate Ordered for PRN Ativan as needed [facility]: [facility] [place] Currently in [place] to visit his son Follows with Cardiology Dr. Kane Canseco with [facility] Address : [facility] [address] [place] [address] Will send results of pt's studies to his seafood harvester. Total Time Total Time Spent Total Time Spent (In Minutes): 40 Total Time Includes: Examination of the Patient, Discharge Planning, Medication Reconciliation and Communication With Other Providers Discharge Plan Discharge Items Patient Disposition: Home - Self-Care Reason For Visit: SOB, PALPITATIONS Discharge Diagnosis: Atrial fibrillation with RVR s/p cardioversion, Acute systolic heart failure, Pericardial effusion, URI Activity: Resume your previous activity Activity Comment: as tolerated, pace yourself, ask for help as needed Non-emergency contact: Primary Care Provider and [employer] Call non-emergency contact if: you have any medication questions and your symptoms worsen Follow-up/Referrals: PCP,NO [Primary Care Provider] - Diet: Heart Healthy and Low Sodium (2gm) Fluids: 1800ml (7 cups) Addtl Attending Provider Instructions: Make sure to follow up with your primary care physician and your seafood harvester within 1-2 weeks. You were started on several new medications, make sure to take them as prescribed. Also make sure to let your physicians know that you are now taking these new medications. Please read the instructions below carefully. It is important that you monitor your weight daily and keep a log. You will need to notify your providers if your weight increases. Also, recommend to follow healthy diet, low in sodium. Call your Primary Care doctor if any of the following symptoms or problems start or get worse: * Shortness of breath or difficulty breathing * Wake up at night short of breath * Chest pain * Cough * Swelling of your hands, feet, or legs * More fatigued or tired with your normal activity * Palpitations - sudden fast heart beats WEIGHT * Weigh yourself every morning after using the bathroom. * Use the same scale. * Wear the same amount of clothing. * Write your weight down on a chart. * Call your Primary Care doctor if you gain more than 2-3 pounds in 1-2 days. MEDICATIONS * Use this discharge instruction sheet for medication instructions. * Take your medications at the time your doctor ordered. * Do not skip a dose of your medicines. * If you miss a dose of medicine, take it as soon as possible, but DO NOT DOUBLE A DOSE. * Read your medicine information when you get home. * Know all of the side effects of your medicine. If in doubt, ask your pharmacist * Call your Primary Care doctor's office if you have any side effects. * Be sure all of your doctors know what medicine and herbs you take (including cold, flu, and herbal medicine). Take the following with you to your follow-up doctor appointments: * Weight Chart * Medication List * List of questions Do not drink excessive alcohol, beer or wine. Pending Studies at Discharge: No Stand-Alone Forms: My [facility], Smoking Cessation Medications and DC Order Prescriptions: New Eliquis 5 mg Tablet 5 mg PO BID 30 Days Qty: 60 RF: 0 lisinopril [Zestril] 5 mg Tablet 5 mg PO QAM 30 Days Qty: 30 RF: 0 metoprolol succinate 50 mg Tablet Extended Release 24 Hr 50 mg PO QAM 30 Days Qty: 30 RF: 0 furosemide 40 mg Tablet 40 mg PO QAM 30 Days Qty: 30 RF: 0 pantoprazole 40 mg Tablet,Delayed Release (Dr/Ec) 40 mg PO QAM 30 Days Qty: 30 RF: 0 colchicine [Colcrys] 0.6 mg Tablet 0.6 mg PO BID 30 Days Qty: 60 RF: 0 Discontinued amlodipine 5 mg tablet 5 mg PO DAILY RF: 0 Discharge Orders: Discharge Order (Routine); Ordered 03/18/19 Ordered By: Gibson Castillo Admission Data Admit Date/Time: 03/12/19 23:55 Attending Provider: Gibson Castillo Admit Provider: Joshua Fry Primary Care Provider: PCP,NO Other Providers: Joshua Fry ; Irineo Kim ; Barbara Montemayor ; Jun Miles ; Kimi Miles ; Shaun Randhawa ; Kimber Borjas ; Osmani Scott ; Jennifer Torres ; Mac Torres V ; Marija Orantes ; Arlene Rodriguez ; Trena Gonzalez ; Barbara Barnes ; Alli Causey ; Alexandr Yo ; Ida Leonard ; Moustapha Leonard ; Evelyn Holloway ; [place] ; Kathryn Cerna ; Sary Martinez ; Cecily Mcmahan ; Kailey Greenfield ; Jeffry Garcia ; Gaurav Doe ; Grecia Knapp ; Shirley Adhikari ; Meri Jaquez ; Wally Bravo ; Alejandro Ragsdale ; Fuentes Hunter ; Peter Hunter ; Paul Stein ; Alejandro Renee ; Stephanie Moreno ; Leo Arevalo ; Immanuel Car ; Mac Davis ; Wade Kaminski ; Vijaya Vasquez ; Donna Melgar ; Jennifer Gaytan ; Marija Florentino ; Caitlin Izaguirre ; Nehemias Izaguirre ; Alexandr Lucas ; Elsy Chen ; Marcio Baker ; Angela Cabello ; Guzman Marino ; Elsy Faustin ; Anna Shepard ; Dwight Martin ; Priscilla Curiel ; Delma Orellana. Other Interventions: Discharge Summary Assessment (RN) Last Done: 03/18/19 11:23 DC Date/Time DO NOT enter until pt leaves facility: 03/18/19 13:31
--- NOTE | 2019-03-18 16:37 | Cardiology Progress Note ---
Date of Service March 18, 2019 Assessment & Plan (1) Atrial fibrillation with RVR: (2) Acute systolic (congestive) heart failure: (3) Pericardial effusion without cardiac tamponade: (4) HTN (hypertension): (5) URI (upper respiratory infection): Continue current cardiovascular medications including Lasix 40 mg daily, Toprol-XL 50 mg daily, Eliquis 5 mg twice daily, and lisinopril 5 mg daily. Outpatient cardiology follow-up scheduled in the [place] area in 1 week. Repeat resting 2D transthoracic echocardiogram in 6 weeks. Copy cardiac catheterization and echocardiographic images per patient request. Discharge to home today. Subjective Patient seen and examined at bedside. Anxiously awaiting discharge. Heart rate and blood pressure control. Denies chest pain or unusual shortness of breath. No recurrent atrial fibrillation on telemetry. Tolerating medications listed below. Review of Systems Review of Systems: All systems reviewed & are unremarkable except as noted in HPI & below Physical Exam Constitutional: well developed, well nourished and + obese; no acute distress ENMT: Mallampati Class: III Respiratory: normal respiratory effort, lungs clear to auscultation Auscultation: no crackles, no rhonchi and no wheezes Cardiovascular: Rate/Rhythm: regular rate, regular rhythm and + bradycardic Heart Sounds: normal S1, normal S2 and + murmur Vessels: no JVD Extremities: no edema Skin: no rashes, warm and dry Neurologic: PERRL, EOMI, accommodation nl, no face palsy, no dysarthria Psychiatric: A+Ox3, euthymic affect Results & Data Vital Signs (Past 12 Hours) Vital Signs Temp Pulse Pulse Pulse Pulse Resp BP 03/18/19 11:23 37.2 C 51 L 64 49 L 18 111/65 03/18/19 08:38 37.2 C 49 L 18 111/65 03/18/19 08:00 49 L BP Pulse Ox 03/18/19 11:23 105/62 95 03/18/19 08:38 95 03/18/19 08:00 (1) URI (upper respiratory infection) URI type: unspecified URI Qualified Code(s): J06.9 - Acute upper respiratory infection, unspecified (2) HTN (hypertension) Hypertension type: essential hypertension Qualified Code(s): I10 - Essential (primary) hypertension
--- NOTE | 2019-03-28 09:56 | Cardioversion ---
Date of Service March 15, 2019 Electrical Cardioversion Rpt Electrical Cardioversion Report Indication: Cardiomyopathy, congestive heart failure, atrial fibrillation with rapid ventricular response. Complications: None Sedation: Conscious sedation provided by the anesthesia service, see separate report Estimated blood loss: None Procedural summary: Patient sedated per Anesthesia with propofol. Transesophageal echocardiogram performed prior to cardioversion. No evidence o f left atrial appendage thrombus. Defibrillator pads were placed in the anterior-posterior position prior to procedure. After the transesophageal echocardiogram probe was removed, The defibrillatory was sink to the QRS complex. A single 200 joule shock was delivered. Patient successfully converted from atrial fibrillation to normal sinus rhythm. He tolerated procedure well. No focal neurologic deficits postprocedure. He was transferred to the progressive care unit in stable condition. Conclusion: Successful transesophageal echocardiogram guided direct current cardioversion from atrial fibrillation to normal sinus rhythm. Continue anticoagulation uninterrupted for minimum of 4 weeks post procedure, however, likely long-term given elevated stroke risk.
== END 2019-03-18 13:31 | disposition home or self-care (01) | DRG 286 ==
LOC: ED 22:10 → 2S 23:55 → SUATTDRO 23:55 → 2S 03-13 00:19